=== PATIENT | female | born 1990 | race Caucasian/White ===

== ENCOUNTER 2017-09-14 17:05 | Inpatient (IN) | payer MEDICAID, OTHER ==
[~2017-09-14] VITALS: Ht 165.1 cm; Wt 79.8 kg
[~2017-09-14 17:05] MED LIST: METR-1 PO; PREN29TA PO
[2017-09-14 17:08] VITALS: BP 156/88; PULSE 135; RESP 12; TEMP 98.6; O2SAT 98
[2017-09-14 17:59] LABS: BLOOD, URINE NEG (NEG); COMMENT (UR) CULT NOT INDICATED; CULTURE IF INDICATED CULT NOT INDICATED; GLUCOSE,URINE NEG (NEG); KETONE, URINE NEG (NEG); MUCUS URINE FEW /lpf (OCC); NITRITE,URINE NEG (NEG); PH, URINE 6.5 (5.0-8.5); SQUAMOUS EPITHELIAL CELL URINE 1 /hpf (0-5); TRANSITIONAL EPI CELLS, URINE 1 /hpf; URINE COLOR YELLOW (YELLW/STRAW)
[2017-09-14 18:03] LABS: AUTOMATED NEUTROPHIL # 7.3 TH/MM3 (1.8-7.7); BASOPHIL % 0.4 % (0.0-2.0); EOSINOPHIL % 0.4 % (0.0-4.0); HEMATOCRIT 36.9 % (35.0-46.0); HEMO FLAGS DIFF FINAL; LYMPH % 19.6 % (9.0-44.0); LYMPHOCYTE # 1.9 TH/MM3 (1.0-4.8); MEAN CELL VOLUME 87.2 FL (80.0-100.0); MEAN CORPUSCULAR HEMOGLOBIN 30.8 PG (27.0-34.0); MEAN CORPUSCULAR HGB CONC 35.3 % (32.0-36.0); MONO % 5.6 % (0.0-8.0); PLATELET COUNT 196 TH/MM3 (150-450); RED BLOOD COUNT 4.23 MIL/MM3 (4.00-5.30); WHITE BLOOD COUNT 9.9 TH/MM3 (4.0-11.0)
[2017-09-14 18:16] LABS: ALT (GPT) 23 U/L (10-53); ANION GAP 7 MEQ/L (5-15); AST (GOT) 11 U/L (15-37); BICARBONATE 25.1 MEQ/L (21.0-32.0); BLOOD UREA NITROGEN 6 MG/DL (7-18); CHLORIDE 104 MEQ/L (98-107); GLOMERULAR FILTRATION RATE 197 ML/MIN (>89); POTASSIUM 3.5 MEQ/L (3.5-5.1); SODIUM (NA) 136 MEQ/L (136-145)
[2017-09-14 18:33] LABS: ALKALINE PHOSPHATASE 67 U/L (45-117); BETA HCG QUANT 11763 MIU/ML (0-5); TOTAL BILIRUBIN ADULT 0.2 MG/DL (0.2-1.0)
[2017-09-14 19:52] VITALS: PULSE 94
[2017-09-14] MEDS ORDERED: ACETAMINOPHEN 325 MG TAB PO ONE (20:30)
--- NOTE | 2017-09-14 20:34 | PD ---
HPI Chief Complaint: Psychiatric Symptoms Time Seen by Provider: 19:50 Travel History International Travel<30 days: No Contact w/Intl Traveler<30days: No Traveled to known affect area: No History of Present Illness HPI 26yo F with PMH of depression presents to the ED because she has suicidal thoughts. Said she has not taken any medications or cut herself but needs help. She is [id number] by LMP of 05/23/17 but has not seen an OBGYN for this yet. Pt is . Had some suprapubic sharp pain for 3 days. Said had vaginal spotting 3 days ago but resolved. Denies any fever, cough, chest pain, sob, n/v, dysuria, hematuria, or vaginal discharge. PFSH Past Medical History Blood Disorders: No Bipolar Disorder: Yes Anxiety: Yes Depression: Yes Cancer: No Cardiovascular Problems: No Diabetes: No Diminished Hearing: No Endocrine: No Genitourinary: No Immune Disorder: No Musculoskeletal: No Neurologic: No Psychiatric: Yes Reproductive: No Respiratory: No Immunizations Current: Yes Seizures: No Thyroid Disease: No Ulcer: No ?: Menopausal: No : 5 Para: 4 Miscarriage: 0 : 0 Past Surgical History Section: Yes Tonsillectomy: Yes Other Surgery: No Social History Alcohol Use: No Tobacco Use: Yes (1/2 ppd) Substance Use: No Allergies-Medications (Allergen,Severity, Reaction): Coded Allergies: No Known Allergies (Verified Allergy, Unknown, 09/15/17) Reported Meds & Prescriptions Reported Meds & Active Scripts Active Metronidazole 500 Mg Tab 500 Mg PO BID 7 Days Reported Plus Iron 29-1 mg ( Vit-Iron Carbonyl) 29 Mg Iron-1 Mg Tab 1 Tab PO DAILY Review of Systems Except as stated in HPI: all other systems reviewed are Neg Physical Exam Narrative GENERAL: 26yo F not in distress. SKIN: Focused skin assessment warm/dry. HEAD: Atraumatic. Normocephalic. EYES: Pupils equal and round. No scleral icterus. No injection or drainage. ENT: No nasal bleeding or discharge. Mucous membranes pink and moist. NECK: Trachea midline. No JVD. CARDIOVASCULAR: Regular rate and rhythm. No murmur appreciated. RESPIRATORY: No accessory muscle use. Clear to auscultation. Breath sounds equal bilaterally. GASTROINTESTINAL: Abdomen soft, gravid abdomen with fundus about 2cm above umbilicus. Mild suprapubic ttp. No RLQ ttp. No rebound tenderness or guarding. PELVIC: +White vaginal discharge with fishy smell. No blood. Cervical os closed. No CMT or adnexal tenderness bilaterally. MUSCULOSKELETAL: No obvious deformities. No clubbing. No cyanosis. No edema. NEUROLOGICAL: Awake and alert. No obvious cranial nerve deficits. Motor grossly within normal limits. Normal speech. Data Data Last Documented VS Vital Signs Date Time Temp Pulse Resp B/P (MAP) Pulse Ox O2 Delivery O2 Flow Rate FiO2 09/15/17 08:56 98.9 70 17 101/60 (74) 98 09/15/17 07:07 Room Air Orders Orders Complete Blood Count With Diff (09/14/17 17:28) Comprehensive Metabolic Panel (09/14/17 17:) Thyroid Stimulating Hormone (09/14/17 17:28) Urinalysis - C+S If Indicated (09/14/17 17:28) Beta Hcg (Quant/Titer) (09/14/17 17:28) Psych Screen (09/14/17 17:28) Drug Screen, Random Urine (09/14/17 17:28) Type And Screen (09/14/17 20:19) Ed Poc Ultrasound (09/14/17 ) Gc And Chlamydia Pcr (09/14/17 20:20) Wet Prep Profile (09/14/17 20:20) Acetaminophen (Tylenol) (09/14/17 20:30) Tylenol (Acetaminophen) (09/14/17 20:34) Salicylates (Aspirin) (09/14/17 20:34) Alcohol (Ethanol) (09/14/17 20:34) Metronidazole (Flagyl) (09/14/17 22:30) Ob Poc Ultrasound (09/15/17 ) Diet Regular Basic (09/15/17 Breakfast) Admit Order (Ed Use Only) (09/15/17 11:12) Labs Laboratory Tests Test 09/14/17 17:38 09/14/17 20:45 White Blood Count 9.9 TH/MM3 Red Blood Count 4.23 MIL/MM3 Hemoglobin 13.0 GM/DL Hematocrit 36.9 % Mean Corpuscular Volume 87.2 FL Mean Corpuscular Hemoglobin 30.8 PG Mean Corpuscular Hemoglobin Concent 35.3 % Red Cell Distribution Width 13.0 % Platelet Count 196 TH/MM3 Mean Platelet Volume 9.7 FL Neutrophils (%) (Auto) 74.0 % Lymphocytes (%) (Auto) 19.6 % Monocytes (%) (Auto) 5.6 % Eosinophils (%) (Auto) 0.4 % Basophils (%) (Auto) 0.4 % Neutrophils # (Auto) 7.3 TH/MM3 Lymphocytes # (Auto) 1.9 TH/MM3 Monocytes # (Auto) 0.5 TH/MM3 Eosinophils # (Auto) 0.0 TH/MM3 Basophils # (Auto) 0.0 TH/MM3 CBC Comment DIFF FINAL Differential Comment Urine Color YELLOW Urine Turbidity CLEAR Urine pH 6.5 Urine Specific [place] 1.023 Urine Protein TRACE mg/dL Urine Glucose (UA) NEG mg/dL Urine Ketones NEG mg/dL Urine Occult Blood NEG Urine Nitrite NEG Urine Bilirubin NEG Urine Urobilinogen 2.0 MG/DL Urine Leukocyte Esterase LARGE Urine RBC 1 /hpf Urine WBC 4 /hpf Urine Squamous Epithelial Cells 1 /hpf Urine Transitional Epithelial Cells 1 /hpf Urine Mucus FEW /lpf Microscopic Urinalysis Comment CULT NOT INDICATED Blood Urea Nitrogen 6 MG/DL Creatinine 0.39 MG/DL Random Glucose 88 MG/DL Total Protein 7.0 GM/DL Albumin 2.9 GM/DL Calcium Level 8.0 MG/DL Alkaline Phosphatase 67 U/L Aspartate Amino Transf (AST/SGOT) 11 U/L Alanine Aminotransferase (ALT/SGPT) 23 U/L Total Bilirubin 0.2 MG/DL Sodium Level 136 MEQ/L Potassium Level 3.5 MEQ/L Chloride Level 104 MEQ/L Carbon Dioxide Level 25.1 MEQ/L Anion Gap 7 MEQ/L Estimat Glomerular Filtration Rate 197 ML/MIN Thyroid Stimulating Hormone 3rd Gen 0.414 uIU/ML Human Chorionic Gonadotropin, Quant 01805 MIU/ML Salicylates Level 2.9 MG/DL Urine Opiates Screen NEG Acetaminophen Level LESS THAN 2.0 MCG/ML Urine Barbiturates Screen NEG Urine Amphetamines Screen NEG Urine Benzodiazepines Screen NEG Urine Cocaine Screen NEG Urine Cannabinoids Screen NEG Ethyl Alcohol Level LESS THAN 3 MG/DL Clue Cells (Wet Prep) PRESENT Vaginal Trichomonas (Wet Prep) NONE SEEN Vaginal Yeast (Wet Prep) NONE SEEN Chlamydia trachomatis DNA (PCR) NOT DETECTED Neisseria gonorrhoeae DNA (PCR) NOT DETECTED MDM Medical Decision Making Medical Screen Exam Complete: Yes Emergency Medical Condition: Yes Differential Diagnosis Bacterial vaginosis vs. UTI vs. depression vs. suicidal ideation Narrative Course 26yo F with depression here with c/o suicidal ideations. Pt is also about 16 weeks by LMP but never saw any OBGYN for this . Pt said she had sharp lower abdominal pain for 3 days but on exam is really unremarkable except mild suprapubic tenderness. Pelvic is remarkable for fishy whitish vaginal discharge. Labs reviewed, no leukocytosis. bHCG 60236. CMP unremarkable. Acetaminophen negative. Alcohol negative. Salicylate 2.9. Utox negative. UA showed large leukocyte. Likely from vaginal discharge. WBC 4. Wet prep showed positive clue cells. First dose of metronidazole given. Type and screen showed A positive. Rhogam not needed since pt said she had spotting 3 days ago. Bedside ultrasound showed IUP with FHR 135bpm. Pt given acetaminophen for pain. Discussed with Dr. Samson from OB and she will go to OB ED for monitoring and if everything is fine, can come back down to wait for psych. Pt is medically clear from my point of view. Diagnosis Primary Impression: Suicidal ideation Additional Impression: Bacterial vaginosis Patient Instructions: General Instructions Med/Other Pt SpecificInfo: Prescription(s) given Scripts Metronidazole (Metronidazole) 500 Mg Tab 500 MG PO BID for Infection for 7 Days, #14 TAB 0 Refills Prov: Disha Clark DO 09/14/17 Disha Clark DO Sep 14, 2017 20:34
[2017-09-14 21:30] LABS: ACETAMINOPHEN LESS THAN 2.0 MCG/ML (10.0-30.0); ALCOHOL LESS THAN 3 MG/DL (0-5)
[2017-09-14] MEDS ORDERED: metroNIDAZOLE 500 MG TAB PO ONE (22:30)
[2017-09-14 23:07] LABS: CHLAMYDIA PCR NOT DETECTED (NOT DETECT); NEISSERIA PCR NOT DETECTED (NOT DETECT)
[2017-09-14] MEDS ORDERED: METR1TAB76 PO (23:28)
--- NOTE | 2017-09-15 00:54 | PD ---
History of Present Illness Date Seen: Sep 15, 2017 Time Seen: 00:45 History of Present Illness Patient is a 26-year-old with unknown gestational age who presents through the main emergency room with suicidal ideation, supposedly 16 weeks but to the emergency room physician she looks further along than that they wanted her sent to OB ED for monitoring. The OB ED patient was seen and evaluated. Bedside ultrasound was done ultrasound shows a single intrauterine in a breech presentation 16 weeks 3 days by growth parameters giving an E DC 02/27/18 normal anatomy scan performed, cardiac motion documented, placenta is fundal and left lateral, normal amniotic fluid volume noted, fetus is active. Estimated weight 145 gm. Impression--multiparous patient with a single intrauterine 16 weeks 3 days in a breech presentation Plan-returned the patient to the emergency room for psychiatric evaluation, encouraged patient to begin care Jay Jay Samson II, MD Sep 15, 2017 00:54
--- NOTE | 2017-09-15 00:56 | PD ---
HPI Travel History International Travel<30 Days: No Contact w/Intl Traveler<30Days: No Known Affected Area: No Allergies-Medications (Allergen,Severity, Reaction): Coded Allergies: No Known Allergies (Verified Adverse Reaction, Unknown, 09/14/17) Home Meds Active Scripts Metronidazole (Metronidazole) 500 Mg Tab, 500 MG PO BID for Infection for 7 Days , #14 TAB 0 Refills Prov:Disha Clark DO 09/14/17 Reported Medications Vit-Iron Carbonyl ( Plus Iron 29-1 mg) 29 Mg Iron-1 Mg Tab, 1 TAB PO DAILY for Nutritional Supplement, #30 TAB 0 Refills 08/19/17 Discontinued Scripts Metronidazole (Flagyl) 500 Mg Tab, 500 MG PO BID for Infection for 7 Days, #14 TAB 0 Refills Prov:Annette Sam PLATE FORMER 08/19/17 Physical Exam Vital Signs Date Time Temp Pulse Resp B/P (MAP) Pulse Ox O2 Delivery O2 Flow Rate FiO2 09/14/17 19:52 94 09/14/17 17:08 98.6 135 12 156/88 (110) 98 Narrative GENERAL: Well-nourished, well-developed patient. SKIN: Warm and dry. HEAD: Normocephalic and atraumatic. EYES: No scleral icterus. No injection or drainage. ENT: No nasal drainage noted. Mucous membranes pink. Airway patent. NECK: Supple, trachea midline. No JVD. CARDIOVASCULAR: Regular rate and rhythm without murmurs, gallops, or rubs. RESPIRATORY: Breath sounds equal bilaterally. No accessory muscle use. BREASTS: Bilateral exam showed no masses , no retractions, no nipple discharge. ABDOMEN/GI: Abdomen soft, non-tender, bowel sounds present, no rebound, no guarding Gravid to [-] weeks size Fundal Height: [-] GENITOURINARY: External Genitalia: intact and normal in appearance BUS glands: [-] Cervix: [-] Dilatation: [-] Effacement: [-] Station: [-] Presentation: [-] Membranes: [intact or ruptured] Uterine Contractions: [-] FHT's: Category: [-] Baseline: [-] Reactive: [-] Variability: [-] Decels: [-] EXTREMITIES: No cyanosis or edema. BACK: Nontender without obvious deformity. No CVA tenderness. NEUROLOGICAL: Awake and alert. Motor and sensory grossly within normal limits. Five out of 5 muscle strength in all muscle groups. Normal speech. Data Data Orders Orders Complete Blood Count With Diff (09/14/17 17:28) Comprehensive Metabolic Panel (09/14/17 17:28) Thyroid Stimulating Hormone (09/14/17 17:28) Urinalysis - C+S If Indicated (09/14/17 17:) Beta Hcg (Quant/Titer) (09/14/17 17:28) Psych Screen (09/14/17:) Drug Screen, Random Urine (09/14/17:) Type And Screen (09/14/17 20:19) Ed Poc Ultrasound (09/14/17 ) Gc And Chlamydia Pcr (09/14/17 20:20) Wet Prep Profile (09/14/17 20:20) Acetaminophen (Tylenol) (09/14/17 20:30) Tylenol (Acetaminophen) (09/14/17 20:34) Salicylates (Aspirin) (09/14/17 20:34) Alcohol (Ethanol) (09/14/17 20:34) Metronidazole (Flagyl) (09/14/17 22:30) Ob Poc Ultrasound (09/15/17 ) Labs Laboratory Tests Test 09/14/17 17:38 09/14/17 20:45 White Blood Count 9.9 Red Blood Count 4.23 Hemoglobin 13.0 Hematocrit 36.9 Mean Corpuscular Volume 87.2 Mean Corpuscular Hemoglobin 30.8 Mean Corpuscular Hemoglobin Concent 35.3 Red Cell Distribution Width 13.0 Platelet Count 196 Mean Platelet Volume 9.7 Neutrophils (%) (Auto) 74.0 Lymphocytes (%) (Auto) 19.6 Monocytes (%) (Auto) 5.6 Eosinophils (%) (Auto) 0.4 Basophils (%) (Auto) 0.4 Neutrophils # (Auto) 7.3 Lymphocytes # (Auto) 1.9 Monocytes # (Auto) 0.5 Eosinophils # (Auto) 0.0 Basophils # (Auto) 0.0 CBC Comment DIFF FINAL Differential Comment Urine Color YELLOW Urine Turbidity CLEAR Urine pH 6.5 Urine Specific [place] 1.023 Urine Protein TRACE Urine Glucose (UA) NEG Urine Ketones NEG Urine Occult Blood NEG Urine Nitrite NEG Urine Bilirubin NEG Urine Urobilinogen 2.0 Urine Leukocyte Esterase LARGE Urine RBC 1 Urine WBC 4 Urine Squamous Epithelial Cells 1 Urine Transitional Epithelial Cells 1 Urine Mucus FEW Microscopic Urinalysis Comment CULT NOT INDICATED Blood Urea Nitrogen 6 Creatinine 0.39 Random Glucose 88 Total Protein 7.0 Albumin 2.9 Calcium Level 8.0 Alkaline Phosphatase 67 Aspartate Amino Transf (AST/SGOT) 11 Alanine Aminotransferase (ALT/SGPT) 23 Total Bilirubin 0.2 Sodium Level 136 Potassium Level 3.5 Chloride Level 104 Carbon Dioxide Level 25.1 Anion Gap 7 Estimat Glomerular Filtration Rate 197 Thyroid Stimulating Hormone 3rd Gen 0.414 Human Chorionic Gonadotropin, Quant [id number] Salicylates Level 2.9 Urine Opiates Screen NEG Acetaminophen Level LESS THAN 2.0 Urine Barbiturates Screen NEG Urine Amphetamines Screen NEG Urine Benzodiazepines Screen NEG Urine Cocaine Screen NEG Urine Cannabinoids Screen NEG Ethyl Alcohol Level LESS THAN 3 Clue Cells (Wet Prep) PRESENT Vaginal Trichomonas (Wet Prep) NONE SEEN Vaginal Yeast (Wet Prep) NONE SEEN Chlamydia trachomatis DNA (PCR) NOT DETECTED Neisseria gonorrhoeae DNA (PCR) NOT DETECTED MDM Diagnosis Diagnosis: Primary Impression: Suicidal ideation Additional Impression: Bacterial vaginosis Disposition: 65 DISC TO PSYCH CARE FACILITY Condition: Stable Scripts Metronidazole (Metronidazole) 500 Mg Tab 500 MG PO BID for Infection for 7 Days, #14 TAB 0 Refills Prov: Disha Clark DO 09/14/17 Patient Instructions: General Instructions Departure Forms: Tests/Procedures Jay Jay Samson II, MD Sep 15, 2017 00:56
[2017-09-15 03:55] VITALS: BP 134/80; PULSE 86; RESP 16; O2SAT 97
[2017-09-15 07:07] VITALS: BP 121/63; PULSE 88; RESP 18; O2SAT 98
[2017-09-15 08:56] VITALS: BP 101/60; PULSE 70; RESP 17; TEMP 98.9; O2SAT 98
[2017-09-15] MEDS ORDERED: MAGNESIUM HYDROXIDE SUSP 30 ML CUP PO PRN (11:15)
--- NOTE | 2017-09-15 12:22 | HHI.HP ---
Provisional Diagnosis Admission Date Sep 15, 2017 at 11:14 [place]. Adjustment disorder with depressed mood Certification of Person's Competence To Provide Express and Informed Consent I have personally examined Madelin Ledesam , a person being served at [facility] on, Sep 15, 2017 12:04. Express and informed consent means consent voluntarily given in writing, by a competent person, after sufficient explanation and disclosure of the subject matter involved to enable the person to make a knowing and willful decision without any element of force, fraud, deceit, duress, or other form of constraint or coercion. This person is 18 years of age or older, is not now known to be incompetent to consent to treatment with a guardian advocate, and does not have a health care surrogate or proxy currently making medical treatment decisions. I have found this person to be one of the following: [X] Competent to provide express and informed consent, as defined above, for voluntary admission to this facility and is competent to provide express and informed consent for treatment. He/she has the consistent capacity to make well reasoned, willful, and knowing decisions concerning his or her medical or mental health treatment. The person fully and consistently understands the purpose of the admission for examination/placement and is fully capable of personally exercising all rights [place] Incompetent to provide express and informed consent to voluntary admission, and this is incompetent to provide express and informed consent to treatment. The person must be transferred to involuntary status and a petition for a guardian advocate filed with the Circuit Court. [] Refusing to provide express and informed consent to voluntary admission but is competent to provide express and informed consent for treatment. The person must be discharged or transferred to involuntary status. Form shall be completed within 24 hours of a person's arrival at the receiving facility and filed in the clinical record of each person: 1. Admitted on a voluntary basis 2. Permitted to provide express and informed consent to his/her own treatment 3. Allowed to transfer from involuntary to voluntary status 4. Prior to permitting a person to consent to his or her own treatment after having been previously found incompetent to consent to treatment. History of Present Illness Capacity: Has Capacity HPI 26-year-old female who presented voluntarily with thoughts of suicide. The patient is apparently 16 weeks and her left her because she was . He apparently kicked her out of her home with him and she is now homeless. She would like to return to her mother, but her mother lives in [place]. She is unemployed and has been treated historically at [facility] but stopped taking her medicines due to the . Although she is feeling depressed and suicidal, she hopes to receive treatment for her depression. She also reports symptoms of anhedonia, diminished energy, depressed mood, insomnia, anxiety, feelings of hopelessness and helplessness, diminished self-esteem, etc. She is unable to contract for safety at this time. She has a history of cutting herself and has been treated in the past. There are some reports that the patient has used "Marleny" which contradicts her assertion that she stopped taking her psychotropic medicines because she did not want them to hurt her unborn child. Finally, this is her fifth baby. Review of Systems Psychiatric: COMPLAINS OF: Anxiety Except as stated in HPI: all other systems reviewed are Neg Past Psych History Psychological trauma history Unknown psychological trauma in her past. Violence risk - others (6 mos) Minimal Violence risk - self (6 mos) High Substance Abuse History Drugs/Alcohol past 12 months Patient has a history of substance abuse but denies the recent use of substances. Her toxicology screen is noted to be negative at this time. Past Family Social History Coded Allergies: No Known Allergies (Verified Allergy, Unknown, 09/15/17) Active Scripts Metronidazole (Metronidazole) 500 Mg Tab, 500 MG PO BID for Infection for 7 Days , #14 TAB 0 Refills Prov:Disha Clark 09/14/17 Reported Medications Vit-Iron Carbonyl ( Plus Iron 29-1 mg) 29 Mg Iron-1 Mg Tab, 1 TAB PO DAILY for Nutritional Supplement, #30 TAB 0 Refills 08/19/17 Discontinued Scripts Metronidazole (Flagyl) 500 Mg Tab, 500 MG PO BID for Infection for 7 Days, #14 TAB 0 Refills Prov:Annette Sam 08/19/17 Current Medications Medications (Trade) Dose Ordered Sig/Real Route Start Time Stop Time Status Last Admin (Tylenol) 650 mg Q4H PRN PO 09/15/17 11:15 (Milk Of Magnesia Liq) 30 ml DAILY PRN PO 09/15/17 11:15 (Mag-Al Plus Susp Liq) 30 ml Q6H PRN PO 11/10/17 11:15 Family Psych History Positive for mood and anxiety disorders. Social History 16 weeks . Had a OB examination yesterday. Currently unemployed and homeless. Reportedly has a supportive mother in [place]. Reportedly has used drugs in the past. Patient's Strengths (min. 2) Verbal and has access to healthcare. Physical Exam GENERAL: SKIN: Warm and dry. HEAD: Normocephalic. EYES: No scleral icterus. No injection or drainage. NECK: Supple, trachea midline. No JVD or lymphadenopathy. CARDIOVASCULAR: Regular rate and rhythm without murmurs, gallops, or rubs. RESPIRATORY: Breath sounds equal bilaterally. No accessory muscle use. GASTROINTESTINAL: Abdomen soft, non-tender, nondistended. MUSCULOSKELETAL: No cyanosis, or edema. BACK: Nontender without obvious deformity. No CVA tenderness. Vital Signs Vital Signs Date Time Temp Pulse Resp B/P (MAP) Pulse Ox O2 Delivery O2 Flow Rate FiO2 09/15/17 08:56 98.9 70 17 101/60 (74) 98 09/15/17 07:07 Room Air Lab Results Test 09/14/17 17:38 09/14/17 20:45 White Blood Count 9.9 TH/MM3 Red Blood Count 4.23 MIL/MM3 Hemoglobin 13.0 GM/DL Hematocrit 36.9 % Mean Corpuscular Volume 87.2 FL Mean Corpuscular Hemoglobin 30.8 PG Mean Corpuscular Hemoglobin Concent 35.3 % Red Cell Distribution Width 13.0 % Platelet Count 196 TH/MM3 Mean Platelet Volume 9.7 FL Neutrophils (%) (Auto) 74.0 % Lymphocytes (%) (Auto) 19.6 % Monocytes (%) (Auto) 5.6 % Eosinophils (%) (Auto) 0.4 % Basophils (%) (Auto) 0.4 % Neutrophils # (Auto) 7.3 TH/MM3 Lymphocytes # (Auto) 1.9 TH/MM3 Monocytes # (Auto) 0.5 TH/MM3 Eosinophils # (Auto) 0.0 TH/MM3 Basophils # (Auto) 0.0 TH/MM3 CBC Comment DIFF FINAL Differential Comment Urine Color YELLOW Urine Turbidity CLEAR Urine pH 6.5 Urine Specific [place] 1.023 Urine Protein TRACE mg/dL Urine Glucose (UA) NEG mg/dL Urine Ketones NEG mg/dL Urine Occult Blood NEG Urine Nitrite NEG Urine Bilirubin NEG Urine Urobilinogen 2.0 MG/DL Urine Leukocyte Esterase LARGE Urine RBC 1 /hpf Urine WBC 4 /hpf Urine Squamous Epithelial Cells 1 /hpf Urine Transitional Epithelial Cells 1 /hpf Urine Mucus FEW /lpf Microscopic Urinalysis Comment CULT NOT INDICATED Blood Urea Nitrogen 6 MG/DL Creatinine 0.39 MG/DL Random Glucose 88 MG/DL Total Protein 7.0 GM/DL Albumin 2.9 GM/DL Calcium Level 8.0 MG/DL Alkaline Phosphatase 67 U/L Aspartate Amino Transf (AST/SGOT) 11 U/L Alanine Aminotransferase (ALT/SGPT) 23 U/L Total Bilirubin 0.2 MG/DL Sodium Level 136 MEQ/L Potassium Level 3.5 MEQ/L Chloride Level 104 MEQ/L Carbon Dioxide Level 25.1 MEQ/L Anion Gap 7 MEQ/L Estimat Glomerular Filtration Rate 197 ML/MIN Thyroid Stimulating Hormone 3rd Gen 0.414 uIU/ML Human Chorionic Gonadotropin, Quant 16632 MIU/ML Salicylates Level 2.9 MG/DL Urine Opiates Screen NEG Acetaminophen Level LESS THAN 2.0 MCG/ML Urine Barbiturates Screen NEG Urine Amphetamines Screen NEG Urine Benzodiazepines Screen NEG Urine Cocaine Screen NEG Urine Cannabinoids Screen NEG Ethyl Alcohol Level LESS THAN 3 MG/DL Clue Cells (Wet Prep) PRESENT Vaginal Trichomonas (Wet Prep) NONE SEEN Vaginal Yeast (Wet Prep) NONE SEEN Chlamydia trachomatis DNA (PCR) NOT DETECTED Neisseria gonorrhoeae DNA (PCR) NOT DETECTED Mental Status Examination Appearance: Appropriate Consciousness: Alert Orientation: x4 Motor Activity: Normal gait Speech: Unremarkable Language: Adequate Fund of Knowledge: Adequate Attention and Concentration: Adequate Memory: Unremarkable Mood: Sad, Anxious Affect: Sad, Anxious Thought Process & Associations: Intact Thought Content: Appropriate Hallucination Type: None Delusion Type: None Suicidal Ideation: Yes Suicidal Plan: Yes Suicidal Intention: No Homicidal Ideation: No Homicidal Plan: No Homicidal Intention: No Insight: Fair Judgment: Impulsive Assessment & Plan Problem List: (1) Adjustment disorder with depressed mood ICD Codes: F43.21 - Adjustment disorder with depressed mood Status: Acute Assessment & Plan Estimated LOS: days. 26-year-old female currently describing suicidal ideation and currently 16 weeks . Patient has a history of psychiatric treatment. She has been noncompliant with psychotropic medicines. There is also a history that she has been using illicit drugs. In any event, the patient currently presents as a high risk of self-harm and is therefore being admitted for further evaluation and treatment. This physician has ordered a CBC and comprehensive metabolic panel to determine if any infectious or metabolic process is causing or contributing to her depression. Additionally, this physician ordered a thyroid-stimulating hormone level, vitamin B-12 and vitamin D level to determine if deficiencies in these areas are causing or contributing to her depression. As the patient had an OB examination yesterday, OB will not be reconsult it at this time. However, a EKG has been ordered prior to instituting any psychotropic medications. This is to ensure the patient's cardiac conduction system is not adversely affected by psychotropic medicine. This physician spoke with the patient's nurse, Estefania, regarding her current depression and behavior. Finally, case management will be involved to assist with further information gathering and disposition planning. Qamar Paulino MD Sep 15, 2017 12:22
[2017-09-15 13:52] VITALS: BP 122/64; PULSE 98; RESP 16; TEMP 98.2; O2SAT 95
[2017-09-15 17:57] VITALS: BP 126/74; PULSE 84; RESP 18; TEMP 98; O2SAT 97
[2017-09-15] MEDS: ACETAMINOPHEN 325 MG TAB PO PRN (22:09)
[2017-09-16 05:41] VITALS: BP 106/66; PULSE 84; RESP 17; TEMP 97.9; O2SAT 98
[2017-09-16 07:33] LABS: AUTOMATED NEUTROPHIL # 5.5 TH/MM3 (1.8-7.7); BASOPHIL % 0.4 % (0.0-2.0); EOSINOPHIL # 0.1 TH/MM3 (0-0.4); EOSINOPHIL % 0.8 % (0.0-4.0); HEMATOCRIT 37.8 % (35.0-46.0); HEMO FLAGS DIFF FINAL; LYMPH % 22.4 % (9.0-44.0); LYMPHOCYTE # 1.8 TH/MM3 (1.0-4.8); MEAN CELL VOLUME 88.5 FL (80.0-100.0); MEAN CORPUSCULAR HEMOGLOBIN 29.8 PG (27.0-34.0); MEAN CORPUSCULAR HGB CONC 33.7 % (32.0-36.0); MONO % 6.1 % (0.0-8.0); NEUT % 70.3 % (16.0-70.0); PLATELET COUNT 187 TH/MM3 (150-450); RED BLOOD COUNT 4.27 MIL/MM3 (4.00-5.30); RED CELL DISTRIBUTION WIDTH 13.3 % (11.6-17.2); WHITE BLOOD COUNT 7.9 TH/MM3 (4.0-11.0)
[2017-09-16 07:58] LABS: ANION GAP 9 MEQ/L (5-15); AST (GOT) LESS THAN 3 U/L (15-37); BICARBONATE 25.3 MEQ/L (21.0-32.0); BLOOD UREA NITROGEN 6 MG/DL (7-18); CHLORIDE 104 MEQ/L (98-107); GLOMERULAR FILTRATION RATE 191 ML/MIN (>89); POTASSIUM 3.9 MEQ/L (3.5-5.1); SODIUM (NA) 138 MEQ/L (136-145)
[2017-09-16 08:26] LABS: ALKALINE PHOSPHATASE 60 U/L (45-117); ALT (GPT) 16 U/L (10-53); HDL CHOLESTEROL 77.5 MG/DL (40.0-60.0); LDL CHOLESTEROL 155 MG/DL (0-99); TOTAL BILIRUBIN ADULT 0.2 MG/DL (0.2-1.0)
--- NOTE | 2017-09-16 11:39 | HHI.PYPN ---
Subjective Remarks Patient was seen and case discussed with nursing. Patient is pleasant and cooperative with exam. She describes a week of heavy drug use including cocaine and Marleny's. She is feeling depressed with guilty feelings given that she is . She has fleeting suicidal ideation with no intent or plan. Labwork is abnormal with a low TSH. Evaluated from [facility] [employer] [facility] with the recommended Flagyl but it was not started. Mental Status Examination Appearance: Appropriate Consciousness: Alert Orientation: x4 Motor Activity: Normal gait Speech: Unremarkable Language: Adequate Fund of Knowledge: Adequate Attention and Concentration: Adequate Memory: Unremarkable Mood: Sad, Anxious Affect: Sad, Blunt Thought Process & Associations: Intact Thought Content: Appropriate Hallucination Type: None Delusion Type: None Suicidal Ideation: Yes (fleeting) Suicidal Plan: No Suicidal Intention: No Homicidal Ideation: No Homicidal Plan: No Homicidal Intention: No Insight: Fair Judgment: Impulsive Results Labs Test 09/16/17 06:43 White Blood Count 7.9 TH/MM3 Red Blood Count 4.27 MIL/MM3 Hemoglobin 12.7 GM/DL Hematocrit 37.8 % Mean Corpuscular Volume 88.5 FL Mean Corpuscular Hemoglobin 29.8 PG Mean Corpuscular Hemoglobin Concent 33.7 % Red Cell Distribution Width 13.3 % Platelet Count 187 TH/MM3 Mean Platelet Volume 9.8 FL Neutrophils (%) (Auto) 70.3 % Lymphocytes (%) (Auto) 22.4 % Monocytes (%) (Auto) 6.1 % Eosinophils (%) (Auto) 0.8 % Basophils (%) (Auto) 0.4 % Neutrophils # (Auto) 5.5 TH/MM3 Lymphocytes # (Auto) 1.8 TH/MM3 Monocytes # (Auto) 0.5 TH/MM3 Eosinophils # (Auto) 0.1 TH/MM3 Basophils # (Auto) 0.0 TH/MM3 CBC Comment DIFF FINAL Differential Comment Blood Urea Nitrogen 6 MG/DL Creatinine 0.40 MG/DL Random Glucose 76 MG/DL Total Protein 6.3 GM/DL Albumin 2.7 GM/DL Calcium Level 8.2 MG/DL Alkaline Phosphatase 60 U/L Aspartate Amino Transf (AST/SGOT) LESS THAN 3 U/L Alanine Aminotransferase (ALT/SGPT) 16 U/L Total Bilirubin 0.2 MG/DL Sodium Level 138 MEQ/L Potassium Level 3.9 MEQ/L Chloride Level 104 MEQ/L Carbon Dioxide Level 25.3 MEQ/L Anion Gap 9 MEQ/L Estimat Glomerular Filtration Rate 191 ML/MIN Triglycerides Level 121 MG/DL Cholesterol Level 257 MG/DL LDL Cholesterol 155 MG/DL HDL Cholesterol 77.5 MG/DL Cholesterol/HDL Ratio 3.31 RATIO Vitamin B12 Level 228 PG/ML 25-Hydroxy Vitamin D Total 11.7 ng/ML Thyroid Stimulating Hormone 3rd Gen 0.303 uIU/ML Vitals/IOs Vital Signs Date Time Temp Pulse Resp B/P (MAP) Pulse Ox O2 Delivery O2 Flow Rate FiO2 09/16/17 05:41 97.9 84 17 106/66 (79) 98 09/15/17 07:07 Room Air Assessment & Plan Problem List: (1) Adjustment disorder with depressed mood ICD Codes: F43.21 - Adjustment disorder with depressed mood Status: Acute Assessment & Plan Consult medicine for abnormal lab work. Continue current treatment Justification for Cont. Inpt. Patient will decompensate in a less restrictive setting Ollie Barillas DO Sep 16, 2017 11:39
--- NOTE | 2017-09-16 12:35 | EKG ---
Date Performed: 09/16/2017 Time Performed: 08:59:56 PTAGE: 26 years EKG: Sinus rhythm NORMAL ECG Compared to PREVIOUS TRACING , heart rate is slower, otherwise no significant change. PREVIOUS TRACIN 12/05/2008 11.31 DOCTOR: Qamar Kunz Interpretating Date/Time 09/16/2017 12:33:48
--- NOTE | 2017-09-16 13:46 | PD.CONS ---
[facility] Requested By dr grier, psychiatry Reason for Consult Bacterial vaginosis in , abnormal TSH Primary Care Physician No Primary Care Physician Diagnoses: History of Present Illness Patient is a 26-year-old female was admitted to psychiatric unit due to suicidal thoughts. Patient is 16 weeks and came to the emergency room for the above complaint. Patient states is 5 para 4. She notes no nausea and vomiting. Patient has no pain or swelling. Patient did have some vaginal spotting which was scant and has since resolved. She did have evaluation in emergency room which included a wet prep with subsequent diagnosis of bacterial vaginosis. She also had a bedside ultrasound IUP noted. She went to the OB ED for monitoring and apparently was then transferred to the psych unit. Apparently patient had 2 TSH done which one was normal and was slightly abnormal. Patient notes no unusual thyroid history of herself or her family. She has never had any thyroid problems. Medicine was asked to see the patient due to previously diagnosed bacterial vaginosis as well as abnormal TSH. Review of Systems Constitutional: DENIES: Diaphoretic episodes, Fatigue, Fever, Weight gain, Weight loss, Chills, Dizziness, Change in appetite, Night Sweats Endocrine: COMPLAINS OF: Abnorml menstrual pattern (currently ), DENIES : Heat/cold intolerance, Polydipsia, Polyuria, Polyphagia Eyes: DENIES: Blurred vision, Diplopia, Eye inflammation, Eye pain, Vision loss , Photosensitivity, Double Vision Ears, nose, mouth, throat: DENIES: Tinnitus, Hearing loss, Vertigo, Nasal discharge, Oral lesions, Throat pain, Hoarseness, Ear Pain, Running Nose, Epistaxis, Sinus Pain, Toothache, Odynophagia Respiratory: DENIES: Apneas, Cough, Snoring, Wheezing, Hemoptysis, Sputum production, Shortness of breath Cardiovascular: DENIES: Chest pain, Palpitations, Syncope, Dyspnea on Exertion , PND, Lower Extremity Edema, Orthopnea, Claudication Gastrointestinal: DENIES: Abdominal pain, Black stools, Bloody stools, Constipation, Diarrhea, Nausea, Vomiting, Difficulty Swallowing, Anorexia Genitourinary: COMPLAINS OF: Vaginal discharge (previously evaluated as bacterial vaginosis), DENIES: Abnormal vaginal bleeding, Dysmenorrhea, Dyspareunia, Sexual dysfunction, Urinary frequency, Urinary incontinence, Urgency, Hematuria, Dysuria, Nocturia Integumentary: DENIES: Abnormal pigmentation, Pruritus, Rash, Nail changes, Breast masses, Breast skin changes, Nipple discharge Hematologic/lymphatic: DENIES: Bruising, Lymphadenopathy Immunologic/allergic: DENIES: Eczema, Urticaria Neurologic: DENIES: Abnormal gait, Headache, Localized weakness, Paresthesias, Seizures, Speech Problems, Tremor, Poor Balance Psychiatric: DENIES: Anxiety, Confusion, Mood changes, Depression, Hallucinations, Agitation, Suicidal Ideation, Homicidal Ideation, Delusions Except as stated in HPI: all other systems reviewed are Neg Past Family Social History Allergies: Coded Allergies: No Known Allergies (Verified Allergy, Unknown, 09/15/17) Past Medical History bipolar Past Surgical History Tonsillectomy Reported Medications Reviewed in the EMR, vitamins and recently prescribed metronidazole Active Ordered Medications Reviewed in the EMR Family History Family is healthy Social History Currently smokes half pack cigarettes a day, no tobacco, 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 SKIN: No rashes, ecchymoses or lesions. Cool and dry. HEAD: Atraumatic. Normocephalic. No temporal or scalp tenderness. EYES: Pupils equal round and reactive. Extraocular motions intact. No scleral icterus. No injection or drainage. ENT: Nose without bleeding, purulent drainage or septal hematoma. Throat without erythema, tonsillar hypertrophy or exudate. Uvula midline. Airway patent. NECK: Trachea midline. No JVD or lymphadenopathy. Supple, nontender, no meningeal signs. CARDIOVASCULAR: Regular rate and rhythm without murmurs, gallops, or rubs. RESPIRATORY: Clear to auscultation. Breath sounds equal bilaterally. No wheezes , rales, or rhonchi. GASTROINTESTINAL: Abdomen soft, non-tender, gravid. No hepato-splenomegaly, or palpable masses. No guarding. MUSCULOSKELETAL: Extremities without clubbing, cyanosis, or edema. No joint tenderness, effusion, or edema noted. No calf tenderness. Negative Homans sign bilaterally. NEUROLOGICAL: Awake and alert. Cranial nerves II through XII intact. Motor and sensory grossly within normal limits. Five out of 5 muscle strength in all muscle groups. Normal speech. Laboratory Laboratory Tests Test 09/16/17 06:43 White Blood Count 7.9 Red Blood Count 4.27 Hemoglobin 12.7 Hematocrit 37.8 Mean Corpuscular Volume 88.5 Mean Corpuscular Hemoglobin 29.8 Mean Corpuscular Hemoglobin Concent 33.7 Red Cell Distribution Width 13.3 Platelet Count 187 Mean Platelet Volume 9.8 Neutrophils (%) (Auto) 70.3 Lymphocytes (%) (Auto) 22.4 Monocytes (%) (Auto) 6.1 Eosinophils (%) (Auto) 0.8 Basophils (%) (Auto) 0.4 Neutrophils # (Auto) 5.5 Lymphocytes # (Auto) 1.8 Monocytes # (Auto) 0.5 Eosinophils # (Auto) 0.1 Basophils # (Auto) 0.0 CBC Comment DIFF FINAL Differential Comment Blood Urea Nitrogen 6 Creatinine 0.40 Random Glucose 76 Total Protein 6.3 Albumin 2.7 Calcium Level 8.2 Alkaline Phosphatase 60 Aspartate Amino Transf (AST/SGOT) LESS THAN 3 Alanine Aminotransferase (ALT/SGPT) 16 Total Bilirubin 0.2 Sodium Level 138 Potassium Level 3.9 Chloride Level 104 Carbon Dioxide Level 25.3 Anion Gap 9 Estimat Glomerular Filtration Rate 191 Triglycerides Level 121 Cholesterol Level 257 LDL Cholesterol 155 HDL Cholesterol 77.5 Cholesterol/HDL Ratio 3.31 Vitamin B12 Level 228 25-Hydroxy Vitamin D Total 11.7 Thyroid Stimulating Hormone 3rd Gen 0.303 Result Diagram: 09/16/1743 09/16/17 0643 Imaging Ultrasound done in ED Assessment and Plan Problem List: (1) Bacterial vaginosis ICD Code: N76.0 - Acute vaginitis; B96.89 - Other specified bacterial agents as the cause of diseases classified elsewhere Status: Acute Plan: Continue metronidazole as the patient is in her 2nd trimester and the patient is at increased risk of due to ongoing tobacco dependency (2) ICD Code: Z33.1 - Status: Acute Plan: Patient advised to discontinue tobacco Continue with outpatient management of , 16 weeks (nonviable but IUP) Continue vitamins (3) TSH (thyroid-stimulating hormone deficiency) ICD Code: E03.8 - Other specified hypothyroidism Plan: At this point the patient is asymptomatic and . It is difficult to determine whether the TSH differences or diurnal or related to hormonal fluctuations of Plan recommend patient follow-up with her primary prescriptionist for further evaluation if indicated Assessment and Plan Continue psychiatric management as per psychiatry Code Status full code Bethany Valdovinos MD Sep 16, 2017 13:45
[2017-09-16] MEDS: MULTIVIT/MIN/PREN/FOL AC/IRON PRENATAL TAB PO SCH (15:45)
[2017-09-16 18:16] VITALS: BP 116/64; PULSE 80; RESP 18; TEMP 96.5; O2SAT 97
[2017-09-16] MEDS: metroNIDAZOLE 500 MG TAB PO SCH ×2 (18:45→21:43)
[2017-09-17 06:24] VITALS: BP 104/65; PULSE 90; RESP 16; TEMP 97.9; O2SAT 98
--- NOTE | 2017-09-17 09:16 | HHI.PR ---
Subjective Remarks Patient is a 26-year-old female was admitted to psychiatric unit due to suicidal thoughts. Patient is 16 weeks and came to the emergency room for the above complaint. Patient states is 5 para 4. She notes no nausea and vomiting. Patient has no pain or swelling. Patient did have some vaginal spotting which was scant and has since resolved. She did have evaluation in emergency room which included a wet prep with subsequent diagnosis of bacterial vaginosis. She also had a bedside ultrasound IUP noted. She went to the OB ED for monitoring and apparently was then transferred to the psych unit. Apparently patient had 2 TSH done which one was normal and was slightly abnormal. Patient notes no unusual thyroid history of herself or her family. She has never had any thyroid problems. Medicine was asked to see the patient due to previously diagnosed bacterial vaginosis as well as abnormal TSH. 09-17 no new complaints continue flagyl rosibel rn and patient Objective Vitals Vital Signs Date Time Temp Pulse Resp B/P (MAP) Pulse Ox O2 Delivery O2 Flow Rate FiO2 09/17/17 06:24 97.9 90 16 104/65 (78) 98 09/16/17 18:16 96.5 80 18 116/64 (81) 97 Result Diagram: 09/16/17 0643 09/16/17 0643 Other Results Laboratory Tests Test 09/14/17 17:38 09/14/17 20:45 09/16/17 06:43 White Blood Count 9.9 TH/MM3 7.9 TH/MM3 Red Blood Count 4.23 MIL/MM3 4.27 MIL/MM3 Hemoglobin 13.0 GM/DL 12.7 GM/DL Hematocrit 36.9 % 37.8 % Mean Corpuscular Volume 87.2 FL 88.5 FL Mean Corpuscular Hemoglobin 30.8 PG 29.8 PG Mean Corpuscular Hemoglobin Concent 35.3 % 33.7 % Red Cell Distribution Width 13.0 % 13.3 % Platelet Count 196 TH/MM3 187 TH/MM3 Mean Platelet Volume 9.7 FL 9.8 FL Neutrophils (%) (Auto) 74.0 % 70.3 % Lymphocytes (%) (Auto) 19.6 % 22.4 % Monocytes (%) (Auto) 5.6 % 6.1 % Eosinophils (%) (Auto) 0.4 % 0.8 % Basophils (%) (Auto) 0.4 % 0.4 % Neutrophils # (Auto) 7.3 TH/MM3 5.5 TH/MM3 Lymphocytes # (Auto) 1.9 TH/MM3 1.8 TH/MM3 Monocytes # (Auto) 0.5 TH/MM3 0.5 TH/MM3 Eosinophils # (Auto) 0.0 TH/MM3 0.1 TH/MM3 Basophils # (Auto) 0.0 TH/MM3 0.0 TH/MM3 CBC Comment DIFF FINAL DIFF FINAL Differential Comment Urine Color YELLOW Urine Turbidity CLEAR Urine pH 6.5 Urine Specific [place] 1.023 Urine Protein TRACE mg/dL Urine Glucose (UA) NEG mg/dL Urine Ketones NEG mg/dL Urine Occult Blood NEG Urine Nitrite NEG Urine Bilirubin NEG Urine Urobilinogen 2.0 MG/DL Urine Leukocyte Esterase LARGE Urine RBC 1 /hpf Urine WBC 4 /hpf Urine Squamous Epithelial Cells 1 /hpf Urine Transitional Epithelial Cells 1 /hpf Urine Mucus FEW /lpf Microscopic Urinalysis Comment CULT NOT INDICATED Blood Urea Nitrogen 6 MG/DL 6 MG/DL Creatinine 0.39 MG/DL 0.40 MG/DL Random Glucose 88 MG/DL 76 MG/DL Total Protein 7.0 GM/DL 6.3 GM/DL Albumin 2.9 GM/DL 2.7 GM/DL Calcium Level 8.0 MG/DL 8.2 MG/DL Alkaline Phosphatase 67 U/L 60 U/L Aspartate Amino Transf (AST/SGOT) 11 U/L LESS THAN 3 U/L Alanine Aminotransferase (ALT/SGPT) 23 U/L 16 U/L Total Bilirubin 0.2 MG/DL 0.2 MG/DL Sodium Level 136 MEQ/L 138 MEQ/L Potassium Level 3.5 MEQ/L 3.9 MEQ/L Chloride Level 104 MEQ/L 104 MEQ/L Carbon Dioxide Level 25.1 MEQ/L 25.3 MEQ/L Anion Gap 7 MEQ/L 9 MEQ/L Estimat Glomerular Filtration Rate 197 ML/MIN 191 ML/MIN Thyroid Stimulating Hormone 3rd Gen 0.414 uIU/ML 0.303 uIU/ML Human Chorionic Gonadotropin, Quant 36954 MIU/ML Salicylates Level 2.9 MG/DL Urine Opiates Screen NEG Acetaminophen Level LESS THAN 2.0 MCG/ML Urine Barbiturates Screen NEG Urine Amphetamines Screen NEG Urine Benzodiazepines Screen NEG Urine Cocaine Screen NEG Urine Cannabinoids Screen NEG Ethyl Alcohol Level LESS THAN 3 MG/DL Clue Cells (Wet Prep) PRESENT Vaginal Trichomonas (Wet Prep) NONE SEEN Vaginal Yeast (Wet Prep) NONE SEEN Chlamydia trachomatis DNA (PCR) NOT DETECTED Neisseria gonorrhoeae DNA (PCR) NOT DETECTED Triglycerides Level 121 MG/DL Cholesterol Level 257 MG/DL LDL Cholesterol 155 MG/DL HDL Cholesterol 77.5 MG/DL Cholesterol/HDL Ratio 3.31 RATIO Vitamin B12 Level 228 PG/ML 25-Hydroxy Vitamin D Total 11.7 ng/ML Objective Remarks GENERAL: awake alert and oriented- talkative and cooperative SKIN: Warm and dry. HEAD: Atraumatic. Normocephalic. EYES: Pupils equal and round. No scleral icterus. No injection or drainage. EOMI ENT: No nasal bleeding or discharge. Mucous membranes pink and moist. TONGUE MIDLINE NECK: Trachea midline. No JVD. SUPPLE CARDIOVASCULAR: Regular rate and rhythm. S1, S2 NO S3 OR S4 RESPIRATORY: No accessory muscle use. Clear to auscultation. Breath sounds equal bilaterally. GASTROINTESTINAL: Abdomen soft, non-tender, nondistended. Hepatic and splenic margins not palpable. MUSCULOSKELETAL: Extremities without clubbing, cyanosis, or edema. No obvious deformities. NEUROLOGICAL: Awake and alert. No obvious cranial nerve deficits. Motor grossly within normal limits. Five out of 5 muscle strength in the arms and legs. Normal speech. PSYCHIATRIC: Appropriate mood and affect; insight and judgment normal. Medications and IVs Current Medications Acetaminophen (Tylenol) 650 mg ONCE ONCE PO Last administered on 09/14/17 20: 30; Start 09/14/17 at 20:30; Stop 09/14/17 at 20:31; Status DC Metronidazole (Flagyl) 500 mg ONCE ONCE PO Last administered on 09/14/17 22: 30; Start 09/14/17 at 22:30; Stop 09/14/17 at 22:31; Status DC Acetaminophen (Tylenol) 650 mg Q4H PRN PO Pain 1-5 or Temp >101F Last administered on 09/15/17 22:09; Start 09/15/17 at 11:15 Magnesium Hydroxide (Milk Of Magnesia Liq) 30 ml DAILY PRN PO CONSTIPATION; Start 09/15/17 at 11:15 Al Hydrox/Mg Hydrox/Simethicone (Mag-Al Plus Susp Liq) 30 ml Q6H PRN PO DYSPEPSIA; Start 11/10/17 at 11:15 Metronidazole (Flagyl) 500 mg BID PO Last administered on 09/16/17 21:43; Start 09/16/17 at 18:45 Prenat Multivit/ Center Line/Iron/Folic Ac (Stuartnatal Plus 3 ) 1 tab DAILY PO Last administered on 09/16/17t 15:45; Start 09/16/17 at 13:45 A/P Problem List: (1) Bacterial vaginosis ICD Code: N76.0 - Acute vaginitis; B96.89 - Other specified bacterial agents as the cause of diseases classified elsewhere Status: Acute Plan: Continue metronidazole as the patient is in her 2nd trimester (2) ICD Code: Z33.1 - Status: Acute Plan: Patient advised to discontinue tobacco Continue with outpatient management of , 16 weeks (nonviable but IUP) Continue vitamins (3) TSH (thyroid-stimulating hormone deficiency) ICD Code: E03.8 - Other specified hypothyroidism Plan: At this point the patient is asymptomatic and . It is difficult to determine whether the TSH differences or diurnal or related to hormonal fluctuations of Plan recommend patient follow-up with her primary band saw filer for further evaluation if indicated (4) Tobacco abuse ICD Code: Z72.0 - Tobacco use Plan: the patient is at increased risk of due to ongoing tobacco dependency Assessment and Plan BACTERIAL VAGINOSIS- FLAGYL TOBACCO CESSATION RECOMMENDED VITAMINS POSSIBLE THYROID DISORDER Discharge Planning PER PSYCHIATRY Florentino Gasca DO Sep 17, 2017 09:16
[2017-09-17] MEDS: ALUMINUM/MAGNESIUM/SIMETH 30 ML CUP PO PRN (09:31)
[2017-09-17 10:15] LABS: HEMOGLOBIN A1b 1.5 %; HEMOGLOBIN Ao 86.6 %; HEMOGLOBIN LA1C 1.9 %; HEMOGLOBIN P3 3.5 %
[2017-09-17] MEDS: MULTIVIT/MIN/PREN/FOL AC/IRON PRENATAL TAB PO SCH (11:09)
[2017-09-17] MEDS: metroNIDAZOLE 500 MG TAB PO SCH ×2 (11:09→22:03)
--- NOTE | 2017-09-17 12:54 | HHI.PYPN ---
Subjective Remarks Patient was seen and case discussed with nursing. Patient was restarted on Flagyl by the medical team. The recommend outpatient follow-up for her abnormal TSH. Patient notes improvement in mood. She wants to go to rehabilitation after she is discharged here from the hospital. She social with others. Behaving well on the unit. Mental Status Examination Appearance: Appropriate Consciousness: Alert Orientation: x4 Motor Activity: Normal gait Speech: Unremarkable Language: Adequate Fund of Knowledge: Adequate Attention and Concentration: Adequate Memory: Unremarkable Mood: Sad Affect: Blunt Thought Process & Associations: Intact Thought Content: Appropriate Hallucination Type: None Delusion Type: None Suicidal Ideation: Yes (fleeting) Suicidal Plan: No Suicidal Intention: No Homicidal Ideation: No Homicidal Plan: No Homicidal Intention: No Insight: Fair Judgment: Impulsive Results Vitals/IOs Vital Signs Date Time Temp Pulse Resp B/P (MAP) Pulse Ox O2 Delivery O2 Flow Rate FiO2 09/17/17 06:24 97.9 90 16 104/65 (78) 98 09/15/17 07:07 Room Air Assessment & Plan Problem List: (1) Adjustment disorder with depressed mood ICD Codes: F43.21 - Adjustment disorder with depressed mood Status: Acute Assessment & Plan Continue current treatment plan Justification for Cont. Inpt. Patient will decompensate in a less restrictive setting Ollie Barillas DO Sep 17, 2017 12:54
[2017-09-17] MEDS: ACETAMINOPHEN 325 MG TAB PO PRN (14:20)
[2017-09-17 21:55] VITALS: BP 107/65; PULSE 90; RESP 16; TEMP 97.9
[2017-09-18 05:40] VITALS: BP 103/59; PULSE 82; RESP 17; TEMP 97
[2017-09-18] MEDS: MULTIVIT/MIN/PREN/FOL AC/IRON PRENATAL TAB PO SCH (08:38)
[2017-09-18] MEDS: metroNIDAZOLE 500 MG TAB PO SCH ×2 (08:38→21:19)
--- NOTE | 2017-09-18 11:21 | HHI.PYPN ---
Subjective Remarks Patient seen and examined with nurse. Chart reviewed. Case discussed with nursing staff. On my examination today, the patient reports a history of Bipolar Disorder and says that she stopped her Seroquel and Risperdal because she found out she was and her cover seamer told her to stop her psychotropics. She says that since she ceased these agents she has been experiencing "a real bad depression." She is somewhat withdrawn and anhedonic. She endorses some mood instability. She denies any suicidal or homicidal ideation at this time. She denies a history of suicide attempts but does admit to a history of nonsuicidal self-injurious behavior. She endorses use of MDMA and cocaine but reports that she stopped these agents 2 weeks ago because of the . Denies physical complaints. Requesting nicotine replacement, smokes about 7 cigarettes per day. Patient counseled regarding risk of smoking in and relatively unknown risks of nicotine replacement in . Review of Systems Except as stated in HPI: all other systems reviewed are Neg Mental Status Examination Appearance: Appropriate Consciousness: Alert Orientation: x4 Motor Activity: Other (no abnormal motor movements noted) Speech: Unremarkable Language: Adequate Fund of Knowledge: Adequate Attention and Concentration: Adequate Memory: Unremarkable Mood: Other (depressed) Affect: Blunt Thought Process & Associations: Logical, Goal directed, Linear Thought Content: Appropriate Hallucination Type: None Delusion Type: None Suicidal Ideation: No Suicidal Plan: No Suicidal Intention: No Homicidal Ideation: No Homicidal Plan: No Homicidal Intention: No Insight: Fair Judgment: Adequate (fair) Results Labs Labs reviewed. Low TSH noted. Low vitamin D noted. Vitals/IOs Vital Signs Date Time Temp Pulse Resp B/P (MAP) Pulse Ox O2 Delivery O2 Flow Rate FiO2 09/18/17 05:40 97.0 82 17 103/59 (74) 09/17/17 06:24 98 09/15/17 07:07 Room Air Assessment & Plan Problem List: (1) Bipolar depression ICD Codes: F31.30 - Bipolar disorder, current episode depressed, mild or moderate severity, unspecified (2) Polysubstance abuse ICD Codes: F19.10 - Other psychoactive substance abuse, uncomplicated (3) Tobacco abuse ICD Codes: Z72.0 - Tobacco use Assessment & Plan Patient may benefit from resumption of mood stabilizing medication for management of mood symptoms. I will provide patient with Psychiatric Disorders During guide from [facility] to frame discussion of possible psychotropic medication treatment. Nicotine 7mg patch for nicotine replacement with instructions to remove patch at HS to reduce nicotine exposure. Hospitalist input noted and appreciated. Continue to monitor on the inpatient unit. Continue other medications and care as ordered. Justification for Cont. Inpt. Complicating conditions. Medication changes proposed. Risk for decompensation in less restrictive environment. Discharge Planning Patient would like placement in [facility]. I have left for the counselor to discuss case. Request HC Surrog/Guard Advoc?: No Reggie Coello MD Sep 18, 2017 11:21
[2017-09-18] MEDS: NICOTINE 7 MG/24 HR PATCH T-DERMAL SCH (15:04)
[2017-09-18 17:11] VITALS: BP 122/58; PULSE 89; RESP 16; TEMP 97.4; O2SAT 96
--- NOTE | 2017-09-18 18:14 | HHI.PR ---
Subjective Remarks no complains states vaginal discharge- less, no itching good po Objective Vitals Vital Signs Date Time Temp Pulse Resp B/P (MAP) Pulse Ox O2 Delivery O2 Flow Rate FiO2 09/18/17 17:11 97.4 89 16 122/58 (79) 96 09/18/17 05:40 97.0 82 17 103/59 (74) 09/17/17 21:55 97.9 90 16 107/65 (79) I/O 09/17/17 09/17/17 09/17/17 09/18/17 09/18/17 09/18/17 07:00 15:00 23:00 07:00 15:00 23:00 Intake Total 240 ml Balance 240 ml Intake Oral 240 ml Result Diagram: 09/16/1764209/16/17642 Objective Remarks lungs clear regular rhythm abdomen soft no leg swelling A/P Assessment and Plan (1) Bacterial vaginosis ICD Code: N76.0 - Acute vaginitis; B96.89 - Other specified bacterial agents as the cause of diseases classified elsewhere Status: Acute Plan: Continue metronidazole- give total 7 days as the patient is in her 2nd trimester (2) ICD Code: Z33.1 - Status: Acute Plan: Patient advised to discontinue tobacco Continue with outpatient management of , 16 weeks Continue vitamins (3) TSH (thyroid-stimulating hormone deficiency) ICD Code: E03.8 - Other specified hypothyroidism Plan: At this point the patient is asymptomatic and . It is difficult to determine whether the TSH differences or diurnal or related to hormonal fluctuations of Plan recommend patient follow-up with her primary wire stripper for further evaluation if indicated rcheck as OP (4) Tobacco abuse ICD Code: Z72.0 - Tobacco use Plan: the patient is at increased risk of due to ongoing tobacco dependency Inderjit Cam MD Sep 18, 2017 18:14
[2017-09-18] MEDS: ALUMINUM/MAGNESIUM/SIMETH 30 ML CUP PO PRN (18:40)
[2017-09-18] MEDS: REMOVE OLD PATCH T-DERMAL SCH (21:00)
[2017-09-19 06:05] VITALS: BP 111/56; PULSE 86; RESP 17; TEMP 98.3; O2SAT 98
[2017-09-19] MEDS: MULTIVIT/MIN/PREN/FOL AC/IRON PRENATAL TAB PO SCH (08:43)
[2017-09-19] MEDS: CHOLECALCIFEROL (VIT D3) 1000 UNIT TAB PO SCH (08:44)
[2017-09-19] MEDS: metroNIDAZOLE 500 MG TAB PO SCH ×2 (08:44→21:26)
[2017-09-19] MEDS ORDERED: NICOTINE 7 MG/24 HR PATCH T-DERMAL SCH (09:00)
--- NOTE | 2017-09-19 09:04 | PD.TTN ---
Patient Problems 1. Discharge planning 2. Medication compliance 3. Knowledge deficit 4. Lack of coping skills Progress Toward Goals Provider Present: Dr. Bonny Coello Provider Input: Will be discussing medication management with patient. Due to patient's , patient has been hesitant to be on medication. Will continue to monitor patient's progress. Nurse(s) Input: Patient is cooperative and calm on the unit. Patient is not displaying any behavioral problems and is compliant. Patient is sleeping well and is denying any side effects. Patient is focused on remaining sober. Psychiatric Counselors Present: VERA Olson Psych Therapist Input: Patient is focused on remaining sober and is interested in going to a sober living situation in order to stay off substances. Patient says that she has goals, such as remaining sober to keep baby healthy, and also to get custody of her 4 other children. Patient provides insight upon her substance abuse. Group Spec/RT/OT/DEAL Present: ALEX Butler Group Spec/RT/OT/DEAL Input: Patient is selective when it comes to groups and for the most part, does not attend. Patient tends to stay in room or is out in the dayroom. Linda Stafford Sep 19, 2017 09:04
[2017-09-19] MEDS: NICOTINE 7 MG/24 HR PATCH T-DERMAL SCH (10:40)
--- NOTE | 2017-09-19 11:32 | HHI.PYPN ---
Subjective Remarks Patient seen and examined with nurse. Chart reviewed. Case discussed in treatment team. Per nursing staff, no behavioral issues overnight. Patient was complaining of some intermittent stomach discomfort overnight but did not have any physical complaints with the nurse asked this morning. On my examination today, the patient has reviewed the psychotropic medication and guide that I provided to her. Based on this information, she would like to resume the Seroquel that she previously was on. She says that she used to take 200 mg of Seroquel at bedtime but has been off it for several weeks after learning she was . We reviewed the risks, benefits and alternatives to this medication with special attention on the risks with this agent in . Patient wishes to proceed with a trial of this agent at this time. Mood remains a little bit depressed although she denies suicidal ideation. Sleep is intermittent and somewhat disturbed. She denies getting up because of need to urinate or other physical factors and denies that she is staying up because of anxious rumination. Denies side effects from current medications. No physical complaints at this time besides some mild nausea with no emesis. Denies any bowel or bladder symptoms. No abdominal pain at this time. Review of Systems Except as stated in HPI: all other systems reviewed are Neg Mental Status Examination Appearance: Appropriate Consciousness: Alert Orientation: x4 Motor Activity: Other (no abnormal motor movements noted) Speech: Unremarkable Language: Adequate Fund of Knowledge: Adequate Attention and Concentration: Adequate Memory: Unremarkable Mood: Other (remains depressed) Affect: Blunt Thought Process & Associations: Logical, Goal directed, Linear Thought Content: Appropriate Hallucination Type: None Delusion Type: None Suicidal Ideation: No Suicidal Plan: No Suicidal Intention: No Homicidal Ideation: No Homicidal Plan: No Homicidal Intention: No Insight: Fair Judgment: Adequate (fair) Results Labs Labs reviewed. No new labs. Vitals/IOs Vital Signs Date Time Temp Pulse Resp B/P (MAP) Pulse Ox O2 Delivery O2 Flow Rate FiO2 09/19/17 06:05 98.3 86 17 111/56 (74) 98 09/15/17 07:07 Room Air Intake and Output 09/19/17 09/19/17 09/20/17 08:00 16:00 00:00 Intake Total 240 ml Balance 240 ml Assessment & Plan Problem List: (1) Bipolar depression ICD Codes: F31.30 - Bipolar disorder, current episode depressed, mild or moderate severity, unspecified (2) Polysubstance abuse ICD Codes: F19.10 - Other psychoactive substance abuse, uncomplicated (3) Tobacco abuse ICD Codes: Z72.0 - Tobacco use Assessment & Plan Initiate Seroquel at reduced dose given that she has not taken this medication in several weeks to avoid excessive sedation. Seroquel 50 mg at bedtime. Hospitalist input noted and appreciated. Continue to monitor on the inpatient unit. Continue other medications and care as ordered. Justification for Cont. Inpt. Med changes. Risk for decompensation and less restrictive environment. Discharge Planning Patient remains interested in pursuing residential rehabilitation for chemical dependency. I have discussed the matter with counselor who is investigating possible rehabilitation options for the patient. Request HC Surrog/Guard Advoc?: No Reggie Coello MD Sep 19, 2017 11:32
--- NOTE | 2017-09-19 14:27 | HHI.PR ---
Subjective Remarks NO NEW COMPLAINTS NO SOB, NO CHEST PAIN, NO PALPITATIONS DW RN AND PT AND PSYCHIATRY Objective Vitals Vital Signs Date Time Temp Pulse Resp B/P (MAP) Pulse Ox O2 Delivery O2 Flow Rate FiO2 09/19/17 06:05 98.3 86 17 111/56 (74) 98 09/18/17 17:11 97.4 89 16 122/58 (79) 96 I/O 09/18/17 09/18/17 09/18/17 09/19/17 09/19/17 09/19/17 07:00 15:00 23:00 07:00 15:00 23:00 Intake Total 240 ml Balance 240 ml Intake Oral 240 ml Result Diagram: 09/16/1764209/16/17642 Objective Remarks GENERAL: awake alert and oriented- talkative and cooperative SKIN: Warm and dry. HEAD: Atraumatic. Normocephalic. EYES: Pupils equal and round. No scleral icterus. No injection or drainage. EOMI ENT: No nasal bleeding or discharge. Mucous membranes pink and moist. TONGUE MIDLINE NECK: Trachea midline. No JVD. SUPPLE CARDIOVASCULAR: Regular rate and rhythm. S1, S2 NO S3 OR S4 RESPIRATORY: No accessory muscle use. Clear to auscultation. Breath sounds equal bilaterally. GASTROINTESTINAL: Abdomen soft, non-tender, nondistended. Hepatic and splenic margins not palpable. MUSCULOSKELETAL: Extremities without clubbing, cyanosis, or edema. No obvious deformities. NEUROLOGICAL: Awake and alert. No obvious cranial nerve deficits. Motor grossly within normal limits. Five out of 5 muscle strength in the arms and legs. Normal speech. PSYCHIATRIC: Appropriate mood and affect; insight and judgment normal. Medications and IVs Current Medications Acetaminophen (Tylenol) 650 mg ONCE ONCE PO Last administered on 09/14/17 20: 30; Start 09/14/17 at 20:30; Stop 09/14/17 at 20:31; Status DC Metronidazole (Flagyl) 500 mg ONCE ONCE PO Last administered on 09/14/17 22: 30; Start 09/14/17 at 22:30; Stop 09/14/17 at 22:31; Status DC Acetaminophen (Tylenol) 650 mg Q4H PRN PO Pain 1-5 or Temp >101F Last administered on 09/17/17 14:20; Start 09/15/17 at 11:15 Magnesium Hydroxide (Milk Of Magnesia Liq) 30 ml DAILY PRN PO CONSTIPATION; Start 09/15/17 at 11:15 Al Hydrox/Mg Hydrox/Simethicone (Mag-Al Plus Susp Liq) 30 ml Q6H PRN PO DYSPEPSIA Last administered on 09/18/17 18:40; Start 09/15/17 at 11:15 Metronidazole (Flagyl) 500 mg BID PO Last administered on 09/19/17 08:44; Start 09/16/17 at 18:45; Stop 09/22/17 at 18:44 Prenat Multivit/ [place]/Iron/Folic Ac (Stuartnatal Plus 3 ) 1 tab DAILY PO Last administered on 09/19/17 08:43; Start 09/16/17 at 13:45 Cholecalciferol (Vitamin D3) 2,000 units DAILY PO Last administered on 08:44; Start 09/19/17 at 09:00 Nicotine (Habitrol 7 Mg Patch.24 Hr) 1 patch DAILY T-DERMAL ; Start 09/19/17 at 09:00; Stop 09/19/17 at 09:00; Status DC Miscellaneous Information 1 HS T-DERMAL Last administered on 09/18/17 21:00; Start 09/18/17 at 21:00 Nicotine (Habitrol 7 Mg Patch.24 Hr) 1 patch DAILY T-DERMAL Last administered on 09/19/17 10:40; Start 09/18/17 at 13:30 A/P Problem List: (1) Bacterial vaginosis ICD Code: N76.0 - Acute vaginitis; B96.89 - Other specified bacterial agents as the cause of diseases classified elsewhere Status: Acute Plan: Continue metronidazole as the patient is in her 2nd trimester FOR TOTAL OF 7 DAYS (2) ICD Code: Z33.1 - Status: Acute Plan: Patient advised to discontinue tobacco Continue with outpatient management of , 16 weeks (nonviable but IUP) Continue vitamins (3) TSH (thyroid-stimulating hormone deficiency) ICD Code: E03.8 - Other specified hypothyroidism Plan: At this point the patient is asymptomatic and . It is difficult to determine whether the TSH differences or diurnal or related to hormonal fluctuations of Plan recommend patient follow-up with her primary operating room rn for further evaluation if indicated (4) Tobacco abuse ICD Code: Z72.0 - Tobacco use Plan: the patient is at increased risk of due to ongoing tobacco dependency Assessment and Plan BACTERIAL VAGINOSIS- FLAGYL TOBACCO CESSATION RECOMMENDED VITAMINS POSSIBLE THYROID DISORDER OUTPATIENT FOLLOW UP Discharge Planning PER PSYCHIATRY Florentino Gasca DO Sep 19, 2017 14:27
[2017-09-19] MEDS: ACETAMINOPHEN 325 MG TAB PO PRN (16:51)
[2017-09-19 17:06] VITALS: BP 121/76
[2017-09-19 18:00] VITALS: BP 116/77; PULSE 99; RESP 24; TEMP 98.2; O2SAT 99
[2017-09-19 20:33] VITALS: BP 131/84; PULSE 92; RESP 17; TEMP 98.1; O2SAT 97
[2017-09-19] MEDS ORDERED: QUEtiapine FUMARATE 100 MG TAB PO SCH (21:00)
[2017-09-19] MEDS: REMOVE OLD PATCH T-DERMAL SCH (21:00)
[2017-09-19] MEDS ORDERED: QUEtiapine FUMARATE 25 MG TAB PO SCH (21:00)
[2017-09-19 22:54] LABS: BACTERIA, URINE RARE /hpf; BLOOD, URINE NEG (NEG); GLUCOSE,URINE NEG (NEG); KETONE, URINE NEG (NEG); NITRITE,URINE NEG (NEG); SQUAMOUS EPITHELIAL CELL URINE 1 /hpf (0-5); URINE COLOR YELLOW (YELLW/STRAW)
[2017-09-19 22:56] LABS: COMMENT (UR) CULT NOT INDICATED; CULTURE IF INDICATED CULT NOT INDICATED
[2017-09-20 05:45] VITALS: BP 102/51; PULSE 84; RESP 16; TEMP 98.3; O2SAT 98
[2017-09-20] MEDS: NICOTINE 7 MG/24 HR PATCH T-DERMAL SCH (08:08)
[2017-09-20] MEDS: CHOLECALCIFEROL (VIT D3) 1000 UNIT TAB PO SCH (08:09)
[2017-09-20] MEDS: metroNIDAZOLE 500 MG TAB PO SCH ×2 (08:09→21:07)
[2017-09-20] MEDS: MULTIVIT/MIN/PREN/FOL AC/IRON PRENATAL TAB PO SCH (09:00)
--- NOTE | 2017-09-20 10:31 | HHI.PYPN ---
Subjective Remarks Patient seen and examined with nurse. Chart reviewed. Case discussed with nursing staff who reports patient may be somewhat somatic. Patient reportedly complaining to nurse of "back contractions" but then observed by staff to be sitting socializing with peers in no acute distress. Hospitalist notified of these complaints overnight and ordered urinalysis and culture. On my exam, patient complains of back pain. Mood remains a little up and down. She denies SI/HI. Sleep somewhat improved with Seroquel but remains sub-optimal. She would like to titrate Seroquel. Denies side effects from medications. No other physical complaints. She continues to work with counselor on identifying a chemical dependency treatment facility. Review of Systems Except as stated in HPI: all other systems reviewed are Neg Mental Status Examination Appearance: Appropriate Consciousness: Alert Orientation: x4 Motor Activity: Other (no motoric abnormalities noted) Speech: Unremarkable Language: Adequate Fund of Knowledge: Adequate Attention and Concentration: Adequate Memory: Unremarkable Mood: Other ("up and down") Affect: Blunt Thought Process & Associations: Intact, Logical, Linear Thought Content: Appropriate Hallucination Type: None Delusion Type: None Suicidal Ideation: No Suicidal Plan: No Suicidal Intention: No Homicidal Ideation: No Homicidal Plan: No Homicidal Intention: No Insight: Fair Judgment: Adequate (fair) Results Labs Test 09/19/17 21:00 Urine Color YELLOW Urine Turbidity HAZY Urine pH 7.0 Urine Specific [place] 1.016 Urine Protein NEG mg/dL Urine Glucose (UA) NEG mg/dL Urine Ketones NEG mg/dL Urine Occult Blood NEG Urine Nitrite NEG Urine Bilirubin NEG Urine Urobilinogen LESS THAN 2.0 MG/DL Urine Leukocyte Esterase MOD Urine RBC 1 /hpf Urine WBC 2 /hpf Urine Squamous Epithelial Cells 1 /hpf Urine Bacteria RARE /hpf Microscopic Urinalysis Comment CULT NOT INDICATED Date/Time Source Procedure Growth Status 09/19/17 21:00 Urine Clean Catch Urine Culture Pending Received Labs reviewed. Mod LE but no pyuria. UCx pending. Vitals/IOs Vital Signs Date Time Temp Pulse Resp B/P (MAP) Pulse Ox O2 Delivery O2 Flow Rate FiO2 09/20/17 05:45 98.3 84 16 102/51 (68) 98 Intake and Output 09/20/17 09/20/17 09/21/17 08:00 16:00 00:00 Intake Total 240 ml Balance 240 ml Assessment & Plan Problem List: (1) Bipolar depression ICD Codes: F31.30 - Bipolar disorder, current episode depressed, mild or moderate severity, unspecified (2) Polysubstance abuse ICD Codes: F19.10 - Other psychoactive substance abuse, uncomplicated (3) Tobacco abuse ICD Codes: Z72.0 - Tobacco use Assessment & Plan Titrate Seroquel to 100mg qHS. I have asked RN to have hospitalist follow up on patient's physical complaints. Continue to monitor on inpatient unit. Continue other medications and care as ordered. Justification for Cont. Inpt. Risk for decompensation in less restrictive environment. Medication changes. Discharge Planning Hopeful for chem dep placement by the end of the week. Request HC Surrog/Guard Advoc?: No Reggie Coello MD Sep 20, 2017 10:31
--- NOTE | 2017-09-20 15:07 | HHI.PR ---
Subjective Remarks NO NEW COMPLAINTS NO SOB, NO CHEST PAIN, NO PALPITATIONS DW RN AND PT AND PSYCHIATRY -15 SEEN WATCHING A MOVIE NO COMPLAINTS NO NAUSEA NO VOMITING NO PAIN DW PT AND RN Objective Vitals Vital Signs Date Time Temp Pulse Resp B/P (MAP) Pulse Ox O2 Delivery O2 Flow Rate FiO2 09/20/17 05:45 98.3 84 16 102/51 (68) 98 09/19/17 20:33 98.1 92 17 131/84 (100) 97 09/19/17 18:00 98.2 99 24 116/77 (90) 99 09/19/17 17:06 121/76 (91) I/O 09/19/17 09/19/17 09/19/17 09/20/17 09/20/17 09/20/17 07:00 15:00 23:00 07:00 15:00 23:00 Intake Total 480 ml 120 ml 720 ml Balance 480 ml 120 ml 720 ml Intake Oral 480 ml 120 ml 720 ml Result Diagram: 09/16/1743 09/16/1743 Other Results Laboratory Tests Test 09/19/17 21:00 Urine Color YELLOW Urine Turbidity HAZY Urine pH 7.0 Urine Specific [place] 1.016 Urine Protein NEG mg/dL Urine Glucose (UA) NEG mg/dL Urine Ketones NEG mg/dL Urine Occult Blood NEG Urine Nitrite NEG Urine Bilirubin NEG Urine Urobilinogen LESS THAN 2.0 MG/DL Urine Leukocyte Esterase MOD Urine RBC 1 /hpf Urine WBC 2 /hpf Urine Squamous Epithelial Cells 1 /hpf Urine Bacteria RARE /hpf Microscopic Urinalysis Comment CULT NOT INDICATED Objective Remarks GENERAL: awake alert and oriented- talkative and cooperative SKIN: Warm and dry. HEAD: Atraumatic. Normocephalic. EYES: Pupils equal and round. No scleral icterus. No injection or drainage. EOMI ENT: No nasal bleeding or discharge. Mucous membranes pink and moist. TONGUE MIDLINE NECK: Trachea midline. No JVD. SUPPLE CARDIOVASCULAR: Regular rate and rhythm. S1, S2 NO S3 OR S4 RESPIRATORY: No accessory muscle use. Clear to auscultation. Breath sounds equal bilaterally. GASTROINTESTINAL: Abdomen soft, non-tender, nondistended. Hepatic and splenic margins not palpable. MUSCULOSKELETAL: Extremities without clubbing, cyanosis, or edema. No obvious deformities. NEUROLOGICAL: Awake and alert. No obvious cranial nerve deficits. Motor grossly within normal limits. Five out of 5 muscle strength in the arms and legs. Normal speech. PSYCHIATRIC: Appropriate mood and affect; insight and judgment normal. Medications and IVs Current Medications Acetaminophen (Tylenol) 650 mg ONCE ONCE PO Last administered on 09/14/17 20: 30; Start 09/14/17 at 20:30; Stop 09/14/17 at 20:31; Status DC Metronidazole (Flagyl) 500 mg ONCE ONCE PO Last administered on 09/14/17 22: 30; Start 09/14/17 at 22:30; Stop 09/14/17 at 22:31; Status DC Acetaminophen (Tylenol) 650 mg Q4H PRN PO Pain 1-5 or Temp >101F Last administered on 09/19/17 16:51; Start 09/15/17 at 11:15 Magnesium Hydroxide (Milk Of Magnesia Liq) 30 ml DAILY PRN PO CONSTIPATION; Start 09/15/17 at 11:15 Al Hydrox/Mg Hydrox/Simethicone (Mag-Al Plus Susp Liq) 30 ml Q6H PRN PO DYSPEPSIA Last administered on 09/18/17 18:40; Start 09/15/17 at 11:15 Metronidazole (Flagyl) 500 mg BID PO Last administered on 09/20/17 08:09; Start 09/16/17 at 18:45; Stop 09/22/17 at 18:44 Prenat Multivit/ Receipt And Report Clerk/Iron/Folic Ac (Stuartnatal Plus 3 ) 1 tab DAILY PO Last administered on 09/19/17 08:43; Start 09/16/17 at 13:45 Cholecalciferol (Vitamin D3) 2,000 units DAILY PO Last administered on 08:09; Start 09/19/17 at 09:00 Nicotine (Habitrol 7 Mg Patch.24 Hr) 1 patch DAILY T-DERMAL ; Start 09/19/17 at 09:00; Stop 09/19/17 at 09:00; Status DC Miscellaneous Information 1 HS T-DERMAL Last administered on 09/19/17 21:00; Start 09/18/17 at 21:00 Nicotine (Habitrol 7 Mg Patch.24 Hr) 1 patch DAILY T-DERMAL Last administered on 09/20/17 08:08; Start 09/18/17 at 13:30 Quetiapine Fumarate (SEROquel) 50 mg HS PO ; Start 09/19/17 at 21:00; Stop at 21:00; Status DC Quetiapine Fumarate (SEROquel) 50 mg HS PO Last administered on 09/19/17t 21: 27; Start 09/19/17 at 21:00; Stop 09/20/17 at 11:39; Status DC Quetiapine Fumarate (SEROquel) 100 mg HS PO ; Start 09/20/17 at 21:00 A/P Problem List: (1) Bacterial vaginosis ICD Code: N76.0 - Acute vaginitis; B96.89 - Other specified bacterial agents as the cause of diseases classified elsewhere Status: Acute Plan: Continue metronidazole as the patient is in her 2nd trimester FOR TOTAL OF 7 DAYS (2) ICD Code: Z33.1 - Status: Acute Plan: Patient advised to discontinue tobacco Continue with outpatient management of , 16 weeks (nonviable but IUP) Continue vitamins (3) TSH (thyroid-stimulating hormone deficiency) ICD Code: E03.8 - Other specified hypothyroidism Plan: At this point the patient is asymptomatic and . It is difficult to determine whether the TSH differences or diurnal or related to hormonal fluctuations of Plan recommend patient follow-up with her primary mid teacher for further evaluation if indicated (4) Tobacco abuse ICD Code: Z72.0 - Tobacco use Plan: the patient is at increased risk of due to ongoing tobacco dependency Assessment and Plan BACTERIAL VAGINOSIS- FLAGYL TOBACCO CESSATION RECOMMENDED VITAMINS POSSIBLE THYROID DISORDER OUTPATIENT FOLLOW UP Discharge Planning PER PSYCHIATRY Florentino Gasca DO Sep 20, 2017 15:07
[2017-09-20 17:02] VITALS: BP 121/77; PULSE 86; RESP 18; TEMP 98.4; O2SAT 99
[2017-09-20] MEDS: REMOVE OLD PATCH T-DERMAL SCH (21:00)
[2017-09-20] MEDS: QUEtiapine FUMARATE 100 MG TAB PO SCH (21:07)
[2017-09-20] MEDS: ALUMINUM/MAGNESIUM/SIMETH 30 ML CUP PO PRN (23:03)
[2017-09-21 05:55] VITALS: BP 104/53; PULSE 82; RESP 18; TEMP 98.1; O2SAT 98
[2017-09-21] MEDS: CHOLECALCIFEROL (VIT D3) 1000 UNIT TAB PO SCH (08:48)
[2017-09-21] MEDS: MULTIVIT/MIN/PREN/FOL AC/IRON PRENATAL TAB PO SCH (08:48)
[2017-09-21] MEDS: metroNIDAZOLE 500 MG TAB PO SCH ×2 (08:48→20:24)
[2017-09-21] MEDS: NICOTINE 7 MG/24 HR PATCH T-DERMAL SCH (08:57)
[2017-09-21] MEDS ORDERED: QUET1TAB8 PO (11:42)
[2017-09-21] MEDS ORDERED: CHOL1000 PO (11:42)
--- NOTE | 2017-09-21 11:43 | HHI.DS ---
Psychiatry Discharge Summary Inpatient Psychiatric care?: Yes Advance Directive: No Reason Not Provided: Due to Patient Condition Mental Health AdvanceDirective: No Health Care Proxy: No Admission Admission Date Sep 15, 2017 at 11:14 Admission Diagnosis: (1) Adjustment disorder with depressed mood ICD Code: F43.21 - Adjustment disorder with depressed mood Brief History 26-year-old female who presented voluntarily with thoughts of suicide. The patient is apparently 16 weeks and her left her because she was . He apparently kicked her out of her home with him and she is now homeless. She would like to return to her mother, but her mother lives in [place]. She is unemployed and has been treated historically at [facility] but stopped taking her medicines due to the . Although she is feeling depressed and suicidal, she hopes to receive treatment for her depression. She also reports symptoms of anhedonia, diminished energy, depressed mood, insomnia, anxiety, feelings of hopelessness and helplessness, diminished self-esteem, etc. She is unable to contract for safety at this time. She has a history of cutting herself and has been treated in the past. There are some reports that the patient has used "Marleny" which contradicts her assertion that she stopped taking her psychotropic medicines because she did not want them to hurt her unborn child. Finally, this is her fifth baby. Tobacco Use In Past 30 Days: 5 or More Cigarettes/Day Alcohol Use: Never Hospital Course Patient was admitted to a locked, inpatient psychiatric unit. A general medical consultation was obtained. Appropriate precautions were in place throughout patient's hospital stay. Patient was seen and examined daily on the unit by psychiatry and visited by counselor. After extensive discussion of the risks, benefits and alternatives in light of her , psychotropic medication management was undertaken. Patient tolerated medications well without side effects. Patient had improvement in presenting psychiatric symptomatology during the course of her hospital stay. There was no evidence of any suicidality or homicidality on the inpatient unit. Patient remained in generally good behavioral control and was medication compliant. Counselor worked with patient to try to identify a rehabilitation or sober living facility into which the patient could go on discharge. Despite counselor's efforts, no such facility could be identified, reportedly because these facilities do not accept patients. [facility] had too long of a wait list to be of practical use as a discharge plan. As an alternative, patient and counselor have made arrangements for patient to travel to [place] to stay with family and receive further treatment there. Given that the alternative presently available is a homeless discharge in [facility], transport to family in [place] seems like the most prudent option. Counselor has arranged transport for the pre-htai hours tomorrow morning. On my examination today: Patient seen and examined with nurse. Chart reviewed. Case discussed with nursing staff. No behavioral issues overnight. For me today, patient is in good spirits. She is enthusiastic about pursuing the plan for transport to [place]. She feels ready to leave the inpatient psychiatric unit. Mood is stable and I can elicit no depressive or hypomanic/manic symptoms. She denies any suicidal or homicidal ideation, intent or plan on direct questioning and contracts for safety. She denies any audiovisual hallucinations, and I can elicit no delusional material. She denies any side effects from medications. She has no physical complaints. Weighing the acute, chronic, and protective factors and based on the available evidence, I squeak rattle and leak repairer to a reasonable degree of medical certainty that the patient is at low imminent risk of harm to self or others from a mental illness as defined under the Brito act and her level of function is adequate for outpatient care. Patient has maximized benefit from this inpatient psychiatric hospital stay will be discharged early tomorrow morning with follow-up as arranged by counselor. Patient is to follow-up with primary care and OB. I have supported the patient in her desire for sobriety and encouraged abstinence from substances going forward. I have counseled the patient regarding warning signs for need to return to the psychiatric emergency room as part of the general safety plan. Results Blood Pressure 104 / 53 Vital Signs Date Time Temp Pulse Resp B/P (MAP) Pulse Ox O2 Delivery O2 Flow Rate FiO2 09/21/17 05:55 98.1 82 18 104/53 (70) 98 Laboratory Tests Test 09/19/17 21:00 Urine Turbidity HAZY (CLEAR) Urine Leukocyte Esterase MOD (NEG) Urine Bacteria RARE /hpf (NONE) Laboratory Results Test 09/16/17 06:43 Cholesterol Level 257 MG/DL (120-200) HDL Cholesterol 77.5 MG/DL (40.0-60.0) Hemoglobin A1c 5.1 % (4.3-6.0) LDL Cholesterol 155 MG/DL (0-99) Triglycerides Level 121 MG/DL (42-150) Summary of Procedures None done Imaging None done Pending results at discharge: No Medications # of Antipsychotic meds at D/C: 1 Approp Antipsych med options 1 - Minimum of three failed multiple trials of monotherapy. 2 - Documented plan to taper to monotherapy due to previous use of multiple meds OR cross-taper in progress at D/C. 3 - Documentation of augmentation of Clozapine. 4 - Justification other than those listed in allowable values 1-3, document here : Discharge Discharge Date: Sep 22, 2017 Discharge Diagnosis: (1) Adjustment disorder with depressed mood Diagnosis: Principal (resolved) ICD Code: F43.21 - Adjustment disorder with depressed mood Status: Acute (2) Polysubstance abuse Diagnosis: Secondary (counseled to quit) ICD Code: F19.10 - Other psychoactive substance abuse, uncomplicated Pt Condition on Discharge: Stable Discharge Disposition: Discharge Home Discharge Instructions Diet Instructions: As Tolerated, No Restrictions Activities you can perform: Weight Bearing as Yessi Scheduled Appointment: as per counselor's notes New Orders: TSH 3RD GEN - 1 Week VITAMIN D,25-HYDROXY - 2 Months New Medications: Cholecalciferol (Gnp Vitamin D3 Extra Stre) 1,000 Unit Tab 2000 UNITS PO DAILY for Vitamin D supplement for 15 Days, TAB 1 Refill Quetiapine (Quetiapine) 100 Mg Tab 100 MG PO HS for Mental Health for 15 Days, TAB 1 Refill Continued Medications: Metronidazole (Metronidazole) 500 Mg Tab 500 MG PO BID for Infection for 2 Days, #4 TAB 0 Refills (This prescription has been renewed) Vit-Iron Carbonyl ( Plus Iron 29-1 mg) 29 Mg Iron-1 Mg Tab 1 TAB PO DAILY for Nutritional Supplement, #30 TAB 6 Refills (This prescription has been renewed) Discharge Time <= 30 minutes Mental Status Examination Appearance: Appropriate Consciousness: Alert Orientation: x4 Motor Activity: Normal gait, Other (no hand tremor, no dystonia, no dyskinesia , no other motor abnormalities noted.) Speech: Unremarkable Language: Adequate Fund of Knowledge: Adequate Attention and Concentration: Adequate Memory: Unremarkable Mood: Good Affect: Appropriate Thought Process & Associations: Intact, Logical, Goal directed, Linear Thought Content: Appropriate Hallucination Type: None Delusion Type: None Suicidal Ideation: No Suicidal Plan: No Suicidal Intention: No Homicidal Ideation: No Homicidal Plan: No Homicidal Intention: No Insight: Fair Judgment: Adequate (fair) Discharge/Advance Care Plan Health Problems: (1) Bipolar depression (2) Polysubstance abuse (3) Tobacco abuse Goals to promote your health * To prevent worsening of your condition and complications * To maintain your health at the optimal level Directions to meet your goals Take your medications as prescribed Follow your dietary instruction Follow activity as directed Keep your appointments as scheduled Take your immunizations and boosters as scheduled If your symptoms worsen call your PCP, if no PCP go to Urgent Care Center or Emergency Room For 29/05 questions related to your inpatient stay or results of tests pending at discharge, please contact Dr. Reggie Coello at Smoking is Dangerous to Your Health. Avoid second hand smoking Reggie Coello MD Sep 21, 2017 11:43
--- NOTE | 2017-09-21 12:07 | HHI.PR ---
Subjective Remarks NO NEW COMPLAINTS NO SOB, NO CHEST PAIN, NO PALPITATIONS DW RN AND PT AND PSYCHIATRY 09-20 SEEN WATCHING A MOVIE NO COMPLAINTS NO NAUSEA NO VOMITING NO PAIN DW PT AND RN 09-21 MEDICALLY CLEARED FOR DC NO NEW COMPLAINTS TOLERATING DIET AND VITAMINS COMPLETE FLAGYL ON 09-22 Objective Vitals Vital Signs Date Time Temp Pulse Resp B/P (MAP) Pulse Ox O2 Delivery O2 Flow Rate FiO2 09/21/17 05:55 98.1 82 18 104/53 (70) 98 09/20/17 17:02 98.4 86 18 121/77 (92) 99 I/O 09/20/17 09/20/17 09/20/17 09/21/17 09/21/17 09/21/17 07:00 15:00 23:00 07:00 15:00 23:00 Intake Total 720 ml Balance 720 ml Intake Oral 720 ml Other Results Laboratory Tests Test 09/19/17 21:00 Urine Color YELLOW Urine Turbidity HAZY Urine pH 7.0 Urine Specific [place] 1.016 Urine Protein NEG mg/dL Urine Glucose (UA) NEG mg/dL Urine Ketones NEG mg/dL Urine Occult Blood NEG Urine Nitrite NEG Urine Bilirubin NEG Urine Urobilinogen LESS THAN 2.0 MG/DL Urine Leukocyte Esterase MOD Urine RBC 1 /hpf Urine WBC 2 /hpf Urine Squamous Epithelial Cells 1 /hpf Urine Bacteria RARE /hpf Microscopic Urinalysis Comment CULT NOT INDICATED Objective Remarks GENERAL: awake alert and oriented- talkative and cooperative SKIN: Warm and dry. HEAD: Atraumatic. Normocephalic. EYES: Pupils equal and round. No scleral icterus. No injection or drainage. EOMI ENT: No nasal bleeding or discharge. Mucous membranes pink and moist. TONGUE MIDLINE NECK: Trachea midline. No JVD. SUPPLE CARDIOVASCULAR: Regular rate and rhythm. S1, S2 NO S3 OR S4 RESPIRATORY: No accessory muscle use. Clear to auscultation. Breath sounds equal bilaterally. GASTROINTESTINAL: Abdomen soft, non-tender, nondistended. Hepatic and splenic margins not palpable. MUSCULOSKELETAL: Extremities without clubbing, cyanosis, or edema. No obvious deformities. NEUROLOGICAL: Awake and alert. No obvious cranial nerve deficits. Motor grossly within normal limits. Five out of 5 muscle strength in the arms and legs. Normal speech. PSYCHIATRIC: Appropriate mood and affect; insight and judgment normal. Procedures NONE Medications and IVs Current Medications Acetaminophen (Tylenol) 650 mg ONCE ONCE PO Last administered on 09/14/17 20: 30; Start 09/14/17 at 20:30; Stop 09/14/17 at 20:31; Status DC Metronidazole (Flagyl) 500 mg ONCE ONCE PO Last administered on 09/14/17 22: 30; Start 09/14/17 at 22:30; Stop 09/14/17 at 22:31; Status DC Acetaminophen (Tylenol) 650 mg Q4H PRN PO Pain 1-5 or Temp >101F Last administered on 09/19/17 16:51; Start 09/15/17 at 11:15 Magnesium Hydroxide (Milk Of Magnesia Liq) 30 ml DAILY PRN PO CONSTIPATION; Start 09/15/17 at 11:15 Al Hydrox/Mg Hydrox/Simethicone (Mag-Al Plus Susp Liq) 30 ml Q6H PRN PO DYSPEPSIA Last administered on 09/20/17 23:03; Start 09/15/17 at 11:15 Metronidazole (Flagyl) 500 mg BID PO Last administered on 09/21/17 08:48; Start 09/16/17 at 18:45; Stop 09/22/17 at 18:44 Prenat Multivit/ [place]/Iron/Folic Ac (Stuartnatal Plus 3 ) 1 tab DAILY PO Last administered on 09/21/17 08:48; Start 09/16/17 at 13:45 Cholecalciferol (Vitamin D3) 2,000 units DAILY PO Last administered on 08:48; Start 09/19/17 at 09:00 Nicotine (Habitrol 7 Mg Patch.24 Hr) 1 patch DAILY T-DERMAL ; Start 09/19/17 at 09:00; Stop 09/19/17 at 09:00; Status DC Miscellaneous Information 1 HS T-DERMAL Last administered on 09/20/17 21:00; Start 09/18/17 at 21:00 Nicotine (Habitrol 7 Mg Patch.24 Hr) 1 patch DAILY T-DERMAL Last administered on 09/21/17 08:57; Start 09/18/17 at 13:30 Quetiapine Fumarate (SEROquel) 50 mg HS PO ; Start 09/19/17 at 21:00; Stop at 21:00; Status DC Quetiapine Fumarate (SEROquel) 50 mg HS PO Last administered on 09/19/17 21: 27; Start 09/19/17 at 21:00; Stop 09/20/17 at 11:39; Status DC Quetiapine Fumarate (SEROquel) 100 mg HS PO Last administered on 09/20/17 21: 07; Start 09/20/17 at 21:00 A/P Problem List: (1) Bacterial vaginosis ICD Code: N76.0 - Acute vaginitis; B96.89 - Other specified bacterial agents as the cause of diseases classified elsewhere Status: Acute Plan: Continue metronidazole as the patient is in her 2nd trimester FOR TOTAL OF 7 DAYS (2) ICD Code: Z33.1 - Status: Acute Plan: Patient advised to discontinue tobacco Continue with outpatient management of , 16 weeks (nonviable but IUP) Continue vitamins (3) TSH (thyroid-stimulating hormone deficiency) ICD Code: E03.8 - Other specified hypothyroidism Plan: At this point the patient is asymptomatic and . It is difficult to determine whether the TSH differences or diurnal or related to hormonal fluctuations of Plan recommend patient follow-up with her primary academic affairs assistant for further evaluation if indicated (4) Tobacco abuse ICD Code: Z72.0 - Tobacco use Plan: the patient is at increased risk of due to ongoing tobacco dependency Assessment and Plan BACTERIAL VAGINOSIS- FLAGYL TOBACCO CESSATION RECOMMENDED VITAMINS POSSIBLE THYROID DISORDER OUTPATIENT FOLLOW UP Discharge Planning MEDICALLY CLEARED Florentino Gasca DO Sep 21, 2017 12:07
[2017-09-21] MEDS ORDERED: METR1TAB76 PO (12:09)
[2017-09-21] MEDS ORDERED: PREN29TA PO (12:09)
[2017-09-21 16:39] VITALS: BP 115/72; PULSE 98; RESP 18; TEMP 98.6; O2SAT 96
[2017-09-21] MEDS: ALUMINUM/MAGNESIUM/SIMETH 30 ML CUP PO PRN (18:40)
[2017-09-21] MEDS: QUEtiapine FUMARATE 100 MG TAB PO SCH (20:24)
[2017-09-21] MEDS: REMOVE OLD PATCH T-DERMAL SCH (20:26)
[2017-09-22 05:28] VITALS: BP 107/57; PULSE 89; RESP 16; TEMP 97.9; O2SAT 98
== END 2017-09-22 05:15 | disposition home or self-care (01) | DRG 781 ==
LOC: NEPD 17:05 → NEDA 09-15 11:14 → H260 09-15 13:10
PROVIDERS: ADMIT Psychiatry & Neurology Psychiatry; ATTEND Psychiatry & Neurology Psychiatry
DX: O99.342 Other mental disorders complicating pregnancy, second trimester (principal); R45.851 Suicidal ideations; O99.322 Drug use complicating pregnancy, second trimester; O23.592 Infection of other part of genital tract in pregnancy, second trimester; F43.21 Adjustment disorder with depressed mood; F19.10 Other psychoactive substance abuse, uncomplicated; N76.0 Acute vaginitis; B96.89 Other specified bacterial agents as the cause of diseases classified elsewhere; O99.332 Smoking (tobacco) complicating pregnancy, second trimester; F17.210 Nicotine dependence, cigarettes, uncomplicated; O99.282 Endocrine, nutritional and metabolic diseases complicating pregnancy, second trimester; E03.8 Other specified hypothyroidism; Z3A.16 16 weeks gestation of pregnancy; Z91.19 Patient's noncompliance with other medical treatment and regimen; Z59.0 Homelessness
CPT/HCPCS: 80053; 80061; 80307; 81001; 82306; 82607; 83036; 84443; 84702; 85025; 86850; 86900; 86901; 87086; 87210; 87491; 87591; 93005

== ENCOUNTER 2017-12-22 23:06 | Emergency (ER) | payer OTHER ==
[~2017-12-22 23:06] MED LIST changes: -METR-1 PO; +PREN1CAP7 PO; +QUET1TAB8 PO; +TERC.4%V VAGINAL; +ZITHTAB PO
[2017-12-22] MEDS ORDERED: LACTATED RINGER'S 1000 ML INJ 1,000 ML IV SCH (23:56)
--- NOTE | 2017-12-23 00:02 | PD ---
HPI Chief Complaint Contractions Date Seen: Dec 22, 2017 Time Seen: 23:55 Travel History International Travel<30 Days: No Contact w/Intl Traveler<30Days: No Known Affected Area: No History of Present Illness HPI Patient is 27-year-old white female previous 1 at 30 weeks presents complaining of contractions began this morning. [facility] and has not had a problem with labor for now. heart rate tracing is reactive and she is armen every 3 minutes Weeks Gestation: 30 Para: 4 : 5 History Obstetric History Obstetric History She had 3 vaginal deliveries and then was section for an 11 pound baby Past Surgical History Narrative Surgical Social History Alcohol Use: No Tobacco Use: No Substance Abuse: No Allergies-Medications (Allergen,Severity, Reaction): Coded Allergies: No Known Allergies (Verified Allergy, Unknown, 11/14/17) Home Meds Active Scripts Nitrofurantoin Monohydrate Macrocrystals (Macrobid) 100 Mg Cap, 100 MG PO BID for Infection for 7 Days, #14 CAP 0 Refills Prov:Jay Jay Samson II, MD 12/23/17 Terconazole Vaginal Cream (Terazol 7 Vaginal Cream) 0.4 % Cream, 1 APPL VAGINAL HS for Fungal Infection, #45 GM 0 Refills 1 applicatorful intravaginally x 7 nights Prov:Fredi Segovia MD 11/23/17 Azithromycin (Zithromax Z-Al) 250 Mg Dspk, 250 MG PO DIRECTED for Infection , #1 DSPK 0 Refills 500 MG (2 tabs) day 1, then 1 tab days 2-5. Prov:Fredi Segovia MD 11/23/17 W/O Vit A W/ Fe Fumar (Citranatal Hope) 27-1-260 Mg Cap, 1 CAP PO DAILY for Nutritional Supplement, #30 CAP 11 Refills Prov:Rea Lopez 11/14/17 Vit-Iron Carbonyl ( Plus Iron 29-1 mg) 29 Mg Iron-1 Mg Tab, 1 TAB PO DAILY for Nutritional Supplement, #30 TAB 6 Refills Prov:Florentino Gasca DO 09/21/17 Quetiapine (Quetiapine) 100 Mg Tab, 100 MG PO HS for Mental Health for 15 Days, TAB 1 Refill Prov:Reggie Coello MD 09/21/17 Review of Systems General / Constitutional: No: Fever, Weight Gain, Chills, Other Eyes: No: Diploplia, Blurred Vision, Visual changes, Pain, Photophobia HENT: No: Headaches, Vertigo, Lightheadedness Cardiovascular: No: Irregular Rhythm, Chest Pain or Discomfort, Palpitations, Tachycardia, Syncope, Varicosities, Edema, Cyanosis Respiratory: No: Cough, Short of Breath, Other Gastrointestinal: Abdominal Pain, No: Nausea, Vomiting, Diarrhea Genitourinary: No: Decreased Urinary Output, Oliguria Musculoskeletal: No: Limited ROM, Weakness, Cramping, Edema, Pain Skin: No Rash, No Itching, No Dryness, No Lumps, No Change in Pigmentation, No Change in Nails, No Alopecia, No Lesions Neurologic: No: Weakness, Dizziness, Syncope, Focal Abnormalities, Coordination Problem, Headache, Slurred Speech, Seizures Psychiatric: No: Depression, Suicidal Ideations, Homicidal Ideation Endocrine: No: Heat Intolerance, Cold Intolerance, Polydipsia, Polyuria, Other Physical Exam Narrative GENERAL: Well-nourished, well-developed patient. SKIN: Warm and dry. HEAD: Normocephalic and atraumatic. EYES: No scleral icterus. No injection or drainage. ENT: No nasal drainage noted. Mucous membranes pink. Airway patent. NECK: Supple, trachea midline. No JVD. CARDIOVASCULAR: Regular rate and rhythm without murmurs, gallops, or rubs. RESPIRATORY: Breath sounds equal bilaterally. No accessory muscle use. BREASTS: Bilateral exam showed no masses , no retractions, no nipple discharge. ABDOMEN/GI: Abdomen soft, non-tender, bowel sounds present, no rebound, no guarding Gravid to [30-] weeks size Fundal Height: [30-] GENITOURINARY: External Genitalia: intact and normal in appearance BUS glands: [-] Cervix: [post-] Dilatation: [0-] Effacement: [-thick] Station: [-3] Membranes: [intact ] Uterine Contractions: [-q 3 min] FHT's: Category: [-1] Baseline: [-133] Reactive: [-R] Variability: [-mod] Decels: [none-] EXTREMITIES: No cyanosis or edema. BACK: Nontender without obvious deformity. No CVA tenderness. NEUROLOGICAL: Awake and alert. Motor and sensory grossly within normal limits. Five out of 5 muscle strength in all muscle groups. Normal speech. Data Data Orders Orders Vital Signs (Adult) .ON ADMISSION (12/22/17 23:56) ^ Labor Status (12/22/17 23:56) Urinalysis - C+S If Indicated (12/22/17 23:56) ^ Non Stress Test (12/22/17 23:56) Fibronectin (12/22/17 23:56) Lactated Ringer's 1000 Ml Inj (Lr 1000 M (12/22/17 23:56) Ob/Psych Drug Screen, Urine (12/22/17 23:56) Fentanyl Inj (Fentanyl Inj) (12/23/17 00:00) Labs Urine dip on OB ED showed large blood and leukocytes fibronectin negative MDM Interpretation(s) 27-year-old white female previous 1 now 30 weeks presents with contractions, no bleeding or leakage of fluid, heart rate tracing is reactive and she is armen every 3 minutes initially. Urinalysis shows large amount of blood and leukocytes on dipstick of here on OB ED sending that to the lab for UA Cozen findings on urine dipstick we'll give the patient is single dose of IV gentamicin 100 mg, the prescription for Macrobid 100 mg twice a day for a week, and fibronectin done and is negative. IV fluid and sedation was adequate tocolyse as this case contractions over the decreased and patient's pain is improved Plan Plan is to to[place]yse labor with IV fluid sedation and her pulse decreases somewhat possibly some terbutaline subcutaneous that at this time is too high for that, IV fluid and sedation was adequate tocolysis , will discharged home on by mouth Macrobid, increase fluids, Tylenol as needed when necessary Diagnosis Diagnosis: Primary Impression: Threatened premature labor affecting , less than 37 weeks in third trimester, antepartum Additional Impression: UTI (urinary tract infection) in in third trimester Disposition: DISCHARGE HOME Condition: Stable Scripts Nitrofurantoin Monohydrate Macrocrystals (Macrobid) 100 Mg Cap 100 MG PO BID for Infection for 7 Days, #14 CAP 0 Refills Prov: Jay Jay Samson II, MD 12/23/17 Jay Jay Samson II, MD Dec 23, 2017 00:02
[2017-12-23] MEDS ORDERED: MACR100C2 PO (00:04)
[2017-12-23 00:11] LABS: AMORPHOUS SEDIMENT, URINE RARE; BACTERIA, URINE RARE /hpf; BILIRUBIN, URINE NEG (NEG); BLOOD, URINE MOD (NEG); GLUCOSE,URINE NEG (NEG); KETONE, URINE NEG (NEG); MUCUS URINE FEW /lpf (OCC); NITRITE,URINE NEG (NEG); PH, URINE 6.5 (5.0-8.5); SQUAMOUS EPITHELIAL CELL URINE 12 /hpf (0-5); URINE COLOR YELLOW (YELLW/STRAW); URINE LEUKOCYTE ESTERASE LARGE (NEG)
[2017-12-23] MEDS ORDERED: GENTAMICIN INJ 100 MG in SODIUM CHLORIDE 0.9% INJ 100 ML IV ONE (00:15)
[2017-12-23 00:30] VITALS: RESP 18
[2017-12-23 00:56] VITALS: RESP 18
== END 2017-12-23 02:00 | disposition home or self-care (01) ==
LOC: HOBED 23:06
DX: O60.03 Preterm labor without delivery, third trimester (principal); O23.43 Unspecified infection of urinary tract in pregnancy, third trimester; Z3A.30 30 weeks gestation of pregnancy; Z79.899 Other long term (current) drug therapy
CPT/HCPCS: 80307; 81001; 82731; 96361; 96374; 96375; 99284; G0481; J1580; J3010; J7120

== ENCOUNTER 2017-12-24 03:48 | Emergency (ER) | payer OTHER ==
[~2017-12-24] VITALS: Ht 165.1 cm; Wt 88.0 kg
[~2017-12-24 03:48] MED LIST changes: +MACR100C2 PO
[2017-12-24 03:51] VITALS: BP 138/87; PULSE 124; RESP 20; TEMP 97.9; O2SAT 99
--- NOTE | 2017-12-24 04:26 | PD ---
HPI Chief Complaint: Depression Time Seen by Provider: 04:01 Travel History International Travel<30 days: No Contact w/Intl Traveler<30days: No Traveled to known affect area: No History of Present Illness HPI 27-year-old 5 para 4 with approximately 30 week presents emergency department stating that she is feeling depressed and having suicidal thoughts. The patient states that she has suffered from depression since she is 11. She was seen in the OB ER yesterday due to premature contractions. She was given IV fluids and diagnosed with a urinary tract infection. The patient states that she filled her prescriptions but has not taken her medications yet. The patient does not have a current plan. She states that her symptoms have been worse over the past week. She did not mention this to the OB doctor yesterday during her evaluation. She denies any drugs, alcohol or tobacco. She states that she has not had any more contractions since yesterday. Positive movement. She denies any fever or chills. No chest pain or shortness of breath. No abdominal pain. No urinary symptoms. PFSH Past Medical History Blood Disorders: No Bipolar Disorder: Yes Anxiety: Yes Depression: Yes Cancer: No Cardiovascular Problems: No Diabetes: No Diminished Hearing: No Endocrine: No Genitourinary: No Headaches: No Immune Disorder: No Musculoskeletal: No Neurologic: No Psychiatric: Yes (Hx of treatment for depression, anxiety) Reproductive: No Respiratory: No Immunizations Current: Yes Seizures: No Thyroid Disease: No Ulcer: No Tetanus Vaccination: > 5 Years Influenza Vaccination: No ?: Menopausal: No : 5 Para: 4 Miscarriage: 0 : 0 Past Surgical History Section: Yes Gynecologic Surgery: Yes () Oral Surgery: Yes (tosilectomy as child) Tonsillectomy: Yes Other Surgery: No Social History Alcohol Use: No Tobacco Use: No Substance Use: No Allergies-Medications (Allergen,Severity, Reaction): Coded Allergies: No Known Allergies (Verified Allergy, Unknown, 12/24/17) Reported Meds & Prescriptions Reported Meds & Active Scripts Active Macrobid (Nitrofurantoin Monoh/Nitrofur Macro) 100 Mg Cap 100 Mg PO BID 7 Days Terazol 7 Vaginal Cream (Terconazole Vaginal Cream) 0.4 % Cream 1 Appl VAGINAL HS 1 applicatorful intravaginally x 7 nights Zithromax Z-Al (Azithromycin) 250 Mg Dspk 250 Mg PO DIRECTED 500 MG (2 tabs) day 1, then 1 tab days 2-5. Citranatal [place] ( W/O Vit A W/ Fe Fumar) 27-1-260 Mg Cap 1 Cap PO DAILY Plus Iron 29-1 mg ( Vit-Iron Carbonyl) 29 Mg Iron-1 Mg Tab 1 Tab PO DAILY Quetiapine (Quetiapine Fumarate) 100 Mg Tab 100 Mg PO HS 15 Days Review of Systems General / Constitutional: No: Fever Eyes: No: Visual changes HENT: No: Headaches Cardiovascular: Positive: Tachycardia, No: Chest Pain or Discomfort Respiratory: No: Shortness of Breath Gastrointestinal: No: Abdominal Pain Genitourinary: Positive: Frequency, No: Dysuria, Hematuria Musculoskeletal: No: Pain Skin: No Rash Neurologic: No: Weakness Psychiatric: Positive: Depression, Suicidal Ideations, No: Anxiety, Disorder of Thought, Mood Disorder, Substance Abuse, Homicidal Ideation Endocrine: No: Polydipsia Hematologic/Lymphatic: No: Easy Bruising Physical Exam Narrative GENERAL: Well-nourished, well-developed patient. SKIN: Warm and dry. HEAD: Normocephalic and atraumatic. EYES: No scleral icterus. No injection or drainage. ENT: No nasal drainage noted. Mucous membranes pink. Airway patent. NECK: Supple, trachea midline. Moves head freely without obvious discomfort. CARDIOVASCULAR: Regular rate and rhythm without murmurs, gallops, or rubs. RESPIRATORY: Breath sounds equal bilaterally. No accessory muscle use. GASTROINTESTINAL: Abdomen soft, non-tender, gravid. Positive movement. EXTREMITIES: No cyanosis or edema. BACK: Nontender without obvious deformity. No CVA tenderness. NEURO: Patient is alert and oriented. no sensorimotor deficits. Nonfocal. Normal speech. PSYCH: No delusions. No auditory or visual hallucinations. Data Data Last Documented VS Vital Signs Date Time Temp Pulse Resp B/P (MAP) Pulse Ox O2 Delivery O2 Flow Rate FiO2 12/24/17 03:51 97.9 124 20 138/87 (104) 99 Room Air Orders Orders Complete Blood Count With Diff (12/24/17 04:02) Comprehensive Metabolic Panel (12/24/17 04:02) Thyroid Stimulating Hormone (12/24/17 04:02) Psych Screen (12/24/17 04:02) Drug Screen, Random Urine (12/24/17 04:02) Alcohol (Ethanol) (12/24/17 04:02) Salicylates (Aspirin) (12/24/17 04:02) Tylenol (Acetaminophen) (12/24/17 04:02) Heart Tones (12/24/17 04:02) Urinalysis - C+S If Indicated (12/24/17 04:19) Sodium Chlor 0.9% 1000 Ml Inj (Ns 1000 M (12/24/17 04:30) MDM Medical Decision Making Medical Screen Exam Complete: Yes Emergency Medical Condition: Yes Medical Record Reviewed: Yes Differential Diagnosis MDM: High Differential diagnoses: Schizophrenia, schizoaffective disorder, bipolar, anxiety, depression, adjustment reaction, mood disorder NOS, ODD, depressive disorder NOS, dementia, dementia with agitation, psychosis NOS, substance induced mood disorder, DMDD, Asperger syndrome, infection,electrolyte abnormality, malingering. Narrative Course Mental health screening discussed with the patient. Psychiatric screen ordered. IV access has been obtained. Patient is given a liter bolus of saline. Routine laboratory tests sent for analysis. heart tones have been ordered. Condition: Stable Jorge Duke Dec 24, 2017 04:26
[2017-12-24] MEDS ORDERED: SODIUM CHLOR 0.9% 1000 ML INJ 1,000 ML IV ONE (04:30)
[2017-12-24 04:49] VITALS: BP 103/62; PULSE 120; RESP 16; O2SAT 98
[2017-12-24 05:24] LABS: AUTOMATED NEUTROPHIL # 11.1 TH/MM3 (1.8-7.7); BASOPHIL % 0.3 % (0.0-2.0); EOSINOPHIL % 0.2 % (0.0-4.0); HEMATOCRIT 35.1 % (35.0-46.0); HEMOGLOBIN 12.1 GM/DL (11.6-15.3); LYMPH % 14.1 % (9.0-44.0); MEAN CELL VOLUME 88.5 FL (80.0-100.0); MEAN CORPUSCULAR HEMOGLOBIN 30.4 PG (27.0-34.0); MEAN CORPUSCULAR HGB CONC 34.4 % (32.0-36.0); MEAN PLATELET VOLUME 8.9 FL (7.0-11.0); MONO % 6.7 % (0.0-8.0); MONOCYTE # 0.9 TH/MM3 (0-0.9); NEUT % 78.7 % (16.0-70.0); PLATELET COUNT 200 TH/MM3 (150-450); RED BLOOD COUNT 3.97 MIL/MM3 (4.00-5.30); WHITE BLOOD COUNT 14.1 TH/MM3 (4.0-11.0)
[2017-12-24 05:47] LABS: BILIRUBIN, URINE NEG (NEG); BLOOD, URINE SMALL (NEG); GLUCOSE,URINE NEG (NEG); KETONE, URINE 40 mg/dL (NEG); NITRITE,URINE NEG (NEG); PH, URINE 6.5 (5.0-8.5); SQUAMOUS EPITHELIAL CELL URINE 14 /hpf (0-5); URINE COLOR YELLOW (YELLW/STRAW); URINE LEUKOCYTE ESTERASE LARGE (NEG)
[2017-12-24 05:58] LABS: ALKALINE PHOSPHATASE 88 U/L (45-117); TOTAL BILIRUBIN ADULT 0.3 MG/DL (0.2-1.0); TOTAL PROTEIN 6.9 GM/DL (6.4-8.2)
[2017-12-24 05:59] LABS: ALBUMIN 2.8 GM/DL (3.4-5.0); ALT (GPT) 17 U/L (10-53); AST (GOT) 35 U/L (15-37); BICARBONATE 22.5 MEQ/L (21.0-32.0); BLOOD UREA NITROGEN 9 MG/DL (7-18); CALCIUM 8.1 MG/DL (8.5-10.1); CHLORIDE 107 MEQ/L (98-107); CREATININE 0.35 MG/DL (0.50-1.00); GLOMERULAR FILTRATION RATE 222 ML/MIN (>89); GLUCOSE,RANDOM 85 MG/DL (74-106); SODIUM (NA) 137 MEQ/L (136-145)
[2017-12-24 06:02] LABS: ACETAMINOPHEN LESS THAN 2.0 MCG/ML (10.0-30.0)
[2017-12-24 11:00] VITALS: BP 111/68; PULSE 103; RESP 16; O2SAT 100
--- NOTE | 2017-12-24 17:26 | PD ---
Physical Exam Narrative Patient was seen by my assistant customer service manager and awaiting psychiatric consultation. Patient denies any suicide ideation now. Patient states that she was arguing with her and says something she did not mean to. Patient's awake alert oriented 3. Data Data Last Documented VS Vital Signs Date Time Temp Pulse Resp B/P (MAP) Pulse Ox O2 Delivery O2 Flow Rate FiO2 12/24/17 11:00 103 16 111/68 (82) 100 Room Air 12/24/17 03:51 97.9 Orders Orders Complete Blood Count With Diff (12/24/17 04:02) Comprehensive Metabolic Panel (12/24/17 04:02) Thyroid Stimulating Hormone (12/24/17 04:02) Psych Screen (12/24/17 04:02) Drug Screen, Random Urine (12/24/17 04:02) Alcohol (Ethanol) (12/24/17 04:02) Salicylates (Aspirin) (12/24/17 04:02) Tylenol (Acetaminophen) (12/24/17 04:02) Heart Tones (12/24/17 04:02) Urinalysis - C+S If Indicated (12/24/17 04:19) Sodium Chlor 0.9% 1000 Ml Inj (Ns 1000 M (12/24/17 04:30) Diet Regular Basic (12/24/17 Breakfast) Diet Regular Basic (12/24/17 Lunch) Ed Discharge Order (12/24/17 17:23) Labs Laboratory Tests Test 12/24/17 05:00 12/24/17 05:15 White Blood Count 14.1 TH/MM3 Red Blood Count 3.97 MIL/MM3 Hemoglobin 12.1 GM/DL Hematocrit 35.1 % Mean Corpuscular Volume 88.5 FL Mean Corpuscular Hemoglobin 30.4 PG Mean Corpuscular Hemoglobin Concent 34.4 % Red Cell Distribution Width 13.0 % Platelet Count 200 TH/MM3 Mean Platelet Volume 8.9 FL Neutrophils (%) (Auto) 78.7 % Lymphocytes (%) (Auto) 14.1 % Monocytes (%) (Auto) 6.7 % Eosinophils (%) (Auto) 0.2 % Basophils (%) (Auto) 0.3 % Neutrophils # (Auto) 11.1 TH/MM3 Lymphocytes # (Auto) 2.0 TH/MM3 Monocytes # (Auto) 0.9 TH/MM3 Eosinophils # (Auto) 0.0 TH/MM3 Basophils # (Auto) 0.0 TH/MM3 CBC Comment DIFF FINAL Differential Comment Blood Urea Nitrogen 9 MG/DL Creatinine 0.35 MG/DL Random Glucose 85 MG/DL Total Protein 6.9 GM/DL Albumin 2.8 GM/DL Calcium Level 8.1 MG/DL Alkaline Phosphatase 88 U/L Aspartate Amino Transf (AST/SGOT) 35 U/L Alanine Aminotransferase (ALT/SGPT) 17 U/L Total Bilirubin 0.3 MG/DL Sodium Level 137 MEQ/L Potassium Level 4.0 MEQ/L Chloride Level 107 MEQ/L Carbon Dioxide Level 22.5 MEQ/L Anion Gap 8 MEQ/L Estimat Glomerular Filtration Rate 222 ML/MIN Thyroid Stimulating Hormone 3rd Gen 0.773 uIU/ML Salicylates Level 2.1 MG/DL Acetaminophen Level LESS THAN 2.0 MCG/ML Ethyl Alcohol Level LESS THAN 3 MG/DL Urine Color YELLOW Urine Turbidity HAZY Urine pH 6.5 Urine Specific [place] 1.009 Urine Protein NEG mg/dL Urine Glucose (UA) NEG mg/dL Urine Ketones 40 mg/dL Urine Occult Blood SMALL Urine Nitrite NEG Urine Bilirubin NEG Urine Urobilinogen LESS THAN 2.0 MG/DL Urine Leukocyte Esterase LARGE Urine RBC 20 /hpf Urine WBC 5 /hpf Urine Squamous Epithelial Cells 14 /hpf Microscopic Urinalysis Comment CULT NOT INDICATED Urine Opiates Screen NEG Urine Barbiturates Screen NEG Urine Amphetamines Screen NEG Urine Benzodiazepines Screen NEG Urine Cocaine Screen NEG Urine Cannabinoids Screen NEG MDM Supervised Visit with GEORGINA: Yes Diagnosis Primary Impression: Adjustment disorder with depressed mood Patient Instructions: General Instructions Additional Instruction: Continue vitamins as directed. Follow-up with personal physician. Return if any problem. Med/Other Pt SpecificInfo: No Change to Meds Disposition: 01 DISCHARGE HOME Condition: Stable Aneudy Peace MD Dec 24, 2017 17:26
== END 2017-12-24 17:27 | disposition home or self-care (01) ==
LOC: NEPD 03:48
DX: O99.343 Other mental disorders complicating pregnancy, third trimester (principal); F43.21 Adjustment disorder with depressed mood; F31.9 Bipolar disorder, unspecified; O23.43 Unspecified infection of urinary tract in pregnancy, third trimester; Z3A.30 30 weeks gestation of pregnancy; Z79.899 Other long term (current) drug therapy
CPT/HCPCS: 80053; 80307; 81001; 84443; 85025; 99283; J7030

== ENCOUNTER 2018-02-08 01:12 | Observation (INO) | payer OTHER ==
[~2018-02-08] VITALS: Ht 165.1 cm; Wt 92.0 kg
[~2018-02-08 01:12] MED LIST changes: -MACR100C2 PO; -TERC.4%V VAGINAL; -ZITHTAB PO
--- NOTE | 2018-02-08 02:05 | PD ---
HPI Chief Complaint Contractions Date Seen: Feb 08, 2018 Time Seen: 02:00 Travel History International Travel<30 Days: No Contact w/Intl Traveler<30Days: No Known Affected Area: No History of Present Illness HPI 27-year-old who comes in complaining of contractions that began at 10 PM. [facility] but states that the have not seen her for the past 6 months, she left the practice as she was dissatisfied with the office. Contractions are not accompanied by any bleeding or discharge or ruptured membranes. They are irregular and mild to moderate. Patient has had good movement. She is a history of a section with her last child but she has had 3 prior spontaneous vaginal deliveries. Patient was seen approximately 2 months ago due to possible labor and she was closed at that time, she also has a history of psychiatric disturbance with adjustment disorder, bipolar and polysubstance abuse although she denies the use of alcohol or drugs at this time. Weeks Gestation: 37 (37.2) Para: 4 : 5 History Past Medical History Medical History: Denies Significant Hx Obstetric History Obstetric History 3 spontaneous vaginal deliveries all between 8 and 9-1/2 pounds Last she was diagnosed with preeclampsia and had a section due to macrosomia and the baby was 11 pounds. Patient continued to have hypertension and was kept on blood pressure medication for 1 year . Past Surgical History Narrative Surgical section Family History Family History: Negative Social History Alcohol Use: No Tobacco Use: Yes (10 cigarettes per day) Substance Abuse: No (Patient's states no drug use but history indicates otherwise) Allergies-Medications (Allergen,Severity, Reaction): Coded Allergies: No Known Allergies (Verified Allergy, Unknown, 02/08/18) Home Meds Active Scripts Vit-Iron Carbonyl ( Plus Iron 29-1 mg) 29 Mg Iron-1 Mg Tab, 1 TAB PO DAILY for Nutritional Supplement, #30 TAB 6 Refills Prov:Florentino Gasca DO 09/21/17 Discontinued Scripts Quetiapine (Quetiapine) 100 Mg Tab, 100 MG PO HS for Mental Health for 15 Days, TAB 1 Refill Prov:Reggie Coello MD 09/21/17 Review of Systems Except as stated in HPI: all other systems reviewed are Neg Physical Exam Narrative GENERAL: Well-nourished, well-developed patient. SKIN: Warm and dry. HEAD: Normocephalic and atraumatic. EYES: No scleral icterus. No injection or drainage. ENT: No nasal drainage noted. Mucous membranes pink. Airway patent. NECK: Supple, trachea midline. No JVD. CARDIOVASCULAR: Regular rate and rhythm without murmurs, gallops, or rubs. RESPIRATORY: Breath sounds equal bilaterally. No accessory muscle use. ABDOMEN/GI: Abdomen soft, non-tender, bowel sounds present, no rebound, no guarding Gravid to [-41] weeks size Fundal Height: [-] GENITOURINARY: External Genitalia: intact and normal in appearance BUS glands: [Normal-] Cervix: [Posterior-] Dilatation: [-Closed] Effacement: [-50] Station: [-High] Presentation: [-Vertex] Membranes: [intact or ruptured] intact Uterine Contractions: [-] Irregular FHT's: Category: [-] 1 Baseline: [-] 140 Reactive: [-] Moderate Variability: [-] Moderate Decels: [-] Absent EXTREMITIES: No cyanosis or edema. BACK: Nontender without obvious deformity. No CVA tenderness. NEUROLOGICAL: Awake and alert. Motor and sensory grossly within normal limits. Five out of 5 muscle strength in all muscle groups. Normal speech. Data Data Vital Signs Reviewed: Yes [facility] Medical Record Reviewed: Yes Plan 27-year-old who is at 37 weeks 2 days 1. Contractions are irregular patient is not labor with a close cervix 2. Prior history of section at term in [place], no surgical records are available at this time 3. Limited care and I do not have any labs. Group B strep was collected and will be sent along with her labs 4. 23 hour observation were elevated blood pressure, no preeclampsia symptoms at this time 5. History of macrosomia 6. Mood adjustment disorder, bipolar disorder, polysubstance abuse Pastora Mclain MD Feb 08, 2018 02:05
[2018-02-08] MEDS ORDERED: SODIUM CHLORIDE 0.9% FLUSH 10 ML FLUSH IV FLUSH PRN (02:15)
[2018-02-08] MEDS ORDERED: ONDANSETRON ODT 4 MG TAB PO PRN (02:15)
[2018-02-08] MEDS ORDERED: ZOLPIDEM TARTRATE 5 MG TAB PO PRN (02:15)
[2018-02-08] MEDS ORDERED: ACETAMINOPHEN 325 MG TAB PO PRN (02:15)
[2018-02-08] MEDS ORDERED: ALUMINUM/MAGNESIUM/SIMETH 30 ML CUP PO PRN (02:15)
[2018-02-08 02:46] LABS: BILIRUBIN, URINE NEG (NEG); BLOOD, URINE NEG (NEG); GLUCOSE,URINE NEG (NEG); KETONE, URINE NEG (NEG); NITRITE,URINE NEG (NEG); PH, URINE 7.5 (5.0-8.5); SQUAMOUS EPITHELIAL CELL URINE 1 /hpf (0-5); URINE COLOR LIGHT-YELLOW (YELLW/STRAW); URINE LEUKOCYTE ESTERASE NEG (NEG)
[2018-02-08 02:53] LABS: BASOPHIL % 0.4 % (0.0-2.0); EOSINOPHIL # 0.1 TH/MM3 (0-0.4); EOSINOPHIL % 0.7 % (0.0-4.0); HEMATOCRIT 36.4 % (35.0-46.0); HEMOGLOBIN 12.4 GM/DL (11.6-15.3); LYMPH % 20.1 % (9.0-44.0); LYMPHOCYTE # 2.3 TH/MM3 (1.0-4.8); MEAN CORPUSCULAR HEMOGLOBIN 30.3 PG (27.0-34.0); MEAN PLATELET VOLUME 9.4 FL (7.0-11.0); MONO % 8.1 % (0.0-8.0); MONOCYTE # 0.9 TH/MM3 (0-0.9); NEUT % 70.7 % (16.0-70.0); PLATELET COUNT 220 TH/MM3 (150-450); RED BLOOD COUNT 4.09 MIL/MM3 (4.00-5.30); RED CELL DISTRIBUTION WIDTH 13.3 % (11.6-17.2); WHITE BLOOD COUNT 11.3 TH/MM3 (4.0-11.0)
[2018-02-08 03:01] LABS: ALBUMIN 2.5 GM/DL (3.4-5.0); ALT (GPT) 12 U/L (10-53); AST (GOT) 9 U/L (15-37); BICARBONATE 22.9 MEQ/L (21.0-32.0); BLOOD UREA NITROGEN 5 MG/DL (7-18); CALCIUM 8.3 MG/DL (8.5-10.1); CHLORIDE 109 MEQ/L (98-107); CREATININE 0.38 MG/DL (0.50-1.00); GLOMERULAR FILTRATION RATE 202 ML/MIN (>89); GLUCOSE,RANDOM 89 MG/DL (74-106); SODIUM (NA) 140 MEQ/L (136-145)
[2018-02-08 03:04] LABS: ALKALINE PHOSPHATASE 165 U/L (45-117); TOTAL BILIRUBIN ADULT 0.2 MG/DL (0.2-1.0); TOTAL PROTEIN 6.6 GM/DL (6.4-8.2)
[2018-02-08 06:11] VITALS: BP 116/66; PULSE 99
[2018-02-08 08:37] VITALS: BP 118/72; PULSE 93; RESP 20; TEMP 98.7
[2018-02-08] MEDS ORDERED: MULTIVIT/MIN/PREN/FOL AC/IRON PRENATAL TAB PO SCH (09:00)
[2018-02-08] MEDS ORDERED: SODIUM CHLORIDE 0.9% FLUSH 10 ML FLUSH IV FLUSH SCH (09:00)
--- NOTE | 2018-02-08 12:24 | HHI.DCPOC ---
Discharge Care Plan Report Symptoms to Your Doctor -Temperature above 100.5 degrees -Redness, of incision or excessive or foul smelling drainage -Unusual pain or calf pain -Increased vaginal bleeding -Painful or difficulty urinating -Feelings of extreme sadness or anxiety after 2 weeks Goals to Promote Your Health * To prevent worsening of your condition and complications, please follow up with your OB doctor within 2-3 days. * To maintain your health at the optimal level, please take all medications as required. Directions to Meet Your Goals Take your medications as prescribed Follow your dietary instruction Follow activity as directed Ensure plenty of rest for recovery Drink fluids for hydration Keep your appointments as scheduled Take your immunizations and boosters as scheduled If your symptoms worsen call your PCP, if no PCP go to Urgent Care Center or Emergency Room Smoking is Dangerous to Your Health. Avoid second hand smoke Call the 24-hour crisis hotline for domestic abuse at Jorge Wilcox MD R1 Feb 08, 2018 12:24
[2018-02-09 23:53] LABS: HEPATITIS B SAG SCREEN NONREACTIVE (NON-REACTIV)
== END 2018-02-08 16:56 | disposition home or self-care (01) ==
LOC: HOBED 01:12 → H2EA 02:06
PROVIDERS: ADMIT Obstetrics & Gynecology Obstetrics; ATTEND Obstetrics & Gynecology Obstetrics
DX: O47.1 False labor at or after 37 completed weeks of gestation (principal); O99.343 Other mental disorders complicating pregnancy, third trimester; F31.9 Bipolar disorder, unspecified; Z3A.37 37 weeks gestation of pregnancy
CPT/HCPCS: 59025; 76816; 76819; 76820; 80053; 80074; 80307; 81001; 84550; 85025; 86592; 86703; 86762; 86850; 86900; 86901; 87081; 87150; 87341; 87491; 87591; 99285; G0378; G0481